=== PATIENT | female | born 2000 | race Caucasian/White ===

== ENCOUNTER 2020-01-04 13:44 | Emergency (ER) | payer MEDICAID, SELFPAY ==
[2020-01-04 13:45] VITALS: BP 111/78; PULSE 77; RESP 15; TEMP 36.9; O2SAT 98; BMI 20.5
--- NOTE | 2020-01-04 14:10 | ED.VISSUMM ---
- ER Visit Summary Date of Service: 01/04/20 Chief Complaint: [Abdominal pain] History of Present Illness: The patient is a 19 F [presents to the emergency department with complaint of abdominal discomfort that started yesterday. Patient describes pain intermittently to the right lower quadrant. Patient states that she has vomited x2. She denies any diarrhea. She states this morning it was continuous for about 3 hours. It tends to wax and wane in intensity and just somewhat of a discomfort. Patient is also 28 weeks . Patient is G1, P0. Patient states that her urine is been dark has mild discomfort when she urinates. This morning she noted small amount of vaginal bleeding that was very light. She still feeling the baby move. Patient is G1, P0. She is had no prior surgeries. No prior medical history. Patient is a smoker.] Physical Examination: [HEENT-PERRLA, EOMI. Cranial nerves II through XII grossly intact. TMs clear. Mucous membranes moist. No adenopathy. Cardiovascular-regular rate and rhythm without murmur or ectopy Lungs-clear to auscultation, chest wall stable without crepitus or subcu emphysema Abdomen-normoactive bowel sounds, soft. Patient has tenderness to palpation of the right lower quadrant. There is no rebound, rigidity, or peritoneal signs. Extremities-intact ?4, normal range of motion, normal pulses, atraumatic] Test Results: [CBC with differential obtained showed a white count of 10.9, hemoglobin 12, hematocrit 37, placed 210. Chemistries unremarkable. LFTs were normal. heart tones were 136. Urinalysis showed 500 cassette esterase as well as 10-25 WBCs and +2 bacteria.] Emergency Department Course and Treatment: [Patient received a liter normal same fluid bolus. Patient received Zofran 4 mg IV. After treatment patient felt significantly improved. She describes just minimal discomfort at this time and is crampy. I discussed case with C[employer] CH[employer] TECHNICIAN on-call Dr. Cantu who asked that patient follow-up with their office and to return for worsening pain, fever, persistent vomiting, or condition should worsen anyway. They did not want to monitor the patient for contractions at this time based on symptom description and presentation as well as findings consistent with UTI. Patient is comfortable with plan.] Treatment Plan: [Patient was started on Keflex and Zofran. She is advised to return if persistent vomiting, worsening pain, fever, or condition should worsen anyway.] Disposition: [Discharged home in stable condition] Impression: [UTI Abdominal pain ] This note was generated with [employer] dictation software. It may contain incorrect words, spelling, and punctuation that were not noted in review of the chart prior to signing ED Disposition - Plan for ED Patient: Referrals: [facility] Doctor,Out of [NON-STAFF] -
[2020-01-04 14:15] LABS: Mucous, Urine 0 SEEN /hpf (<or=2+); Red Blood Cells-Urine 0 SEEN /hpf (0-5)
[2020-01-04] MEDS: 0.9% Normal Saline 1,000 ML 1000 ML IV (14:17)
[2020-01-04] MEDS: Ondansetron 4 MG/2 ML Vial IV (14:17)
[2020-01-04 14:22] LABS: Absolute Lymphocyte Count 1.59 X10^3/uL (0.83-4.51); Absolute Neutrophil Count 8.4 X10^3/uL (2.0-7.7); Basophil# 0.08 X10^3/uL; Basophil% 0.7 % (0-1); Eosinophil# 0.07 X10^3/uL; Eosinophils% 0.6 % (0-5); Hematocrit 36.7 % (37-47); Hemoglobin 12.3 g/dL (12.0-15.0); Lymphocyte # 1.59 X10^3/ul (4.0); Lymphocyte % 14.7 % (19-41); Mean Corp Hgb Conc 33.5 g/dL (32-36); Mean Corpuscular Hgb 30.8 pg (27.0-32.0); Mean Platelet Vol. 10.8 fl (6.2-12.0); Monocyte% 5.5 % (0-10); NRBC Flagged by Analyzer 0 % (0-5); Neutrophil % 77.5 % (47-70); Platelet Count 210 K/mm3 (150-450); RBC Distribution Width CV 12.1 % (11.6-14.6); RBC Distribution Width SD 40.7 fl (35.1-43.9); Red Blood Count 3.99 M/mm3 (4.2-5.4); White Blood Count 10.9 K/mm3 (4.4-11.0)
[2020-01-04 14:35] LABS: Color, Urine Yellow (Yellow); Glucose, Dipstick Normal (Normal); Ketone-Dipstick Negative (Negative); Leukocyte Esterase-Dipstick 500 /ul (Negative); Nitrite-Dipstick Negative (Negative); Occult Blood-Urine Negative /ul (Negative); Protein-Dipstick Negative (Negative); Urine Bilirubin Dipstick Negative (Negative); Urine Clarity Clear (Clear); Urine Urobilinogen Normal (Normal)
[2020-01-04 14:36] LABS: ALB/GLOB Ratio 0.8 RATIO (0.9-2.4); AST(SGOT) 16 U/L (15-37); Alanine Aminotransfer ALT/SGPT 16 U/L (13-56); Albumin, Serum 3.3 g/dL (3.2-5.0); Alkaline Phosphatase 74 U/L (45-117); Anion Gap 6 (5-15); BUN 6 mg/dL (7-18); BUN/Creat Ratio 10.5 RATIO (10-20); Calcium,Total 8.7 mg/dL (8.5-10.1); Chloride 104 mmol/L (98-107); Creatinine, Serum 0.57 mg/dL (0.55-1.02); EST Glomerular Filtration Rate 142 mL/min (>60); Est Glom Filt Rate - Afr Amer 172 mL/min (>60); Estimated Creatinine Clearance 147.88 ml/min; Glucose 72 mg/dL (74-106); Potassium 3.8 mmol/L (3.5-5.1); Protein, Total 7.3 g/dL (6.4-8.2); Sodium Level 135 mmol/L (136-145)
[2020-01-04 14:42] LABS: Bacteria 2+ /hpf (None Seen); Squamous Epithelial Cells - UA 5-10 SEEN /hpf (5-10); White Blood Cells 10-25 SEEN /hpf (0-5)
--- NOTE | 2020-01-04 15:13 | ED.DEP ---
ED Disposition - Plan for ED Patient: Instructions: VOMITING (5y-Adult), Urinary Tract Infections in Women Prescriptions: Cephalexin [Keflex] 500 mg PO Q6 #28 cap Transmission Status: Pending to [facility]ARC[facility] Ondansetron [Zofran Odt] 4 mg PO Q8H PRN PRN #10 tab PRN Reason: Nausea Transmission Status: Pending to [facility] Referrals: [facility] Doctor,Out of [NON-STAFF] - Shonda Ocampo MD [Primary Care Provider] - 3-5 Days
[2020-01-04] MEDS: Ceftriaxone 1 GM/50 ML BAG IV (15:33)
[2020-01-04 16:05] VITALS: BP 100/62; PULSE 70; RESP 18; O2SAT 100
== END 2020-01-04 16:33 | disposition home or self-care (01) ==
LOC: ED 14:30
PROVIDERS: Emergency Provider Emergency Medicine
DX: O23.43 Unspecified infection of urinary tract in pregnancy, third trimester (principal); O99.333 Smoking (tobacco) complicating pregnancy, third trimester; Z3A.28 28 weeks gestation of pregnancy
CPT/HCPCS: 80053; 81001; 85025; 87086; 87088; 96365; 96375; 99283; J7030; J2405

== ENCOUNTER 2020-01-08 19:51 | Emergency (ER) | payer MEDICAID, SELFPAY ==
[2020-01-08 19:51] VITALS: BP 107/65; PULSE 97; RESP 15; TEMP 37.2; O2SAT 97; BMI 20.6
--- NOTE | 2020-01-08 20:40 | ED.DCSUM_ITS ---
- ER Visit Summary Date of Service: 01/08/20 Chief Complaint: Dysuria and vaginal irritation History of Present Illness: The patient is a 19 F presenting with dysuria and vaginal irritation. Patient states this started approximately one week ago. She was seen in the ED on Thursday. At that time she was found to have a UTI and was started on Keflex. She states she took the Keflex for 4 days but then developed a yeast infection and stopped Keflex. She was then treated with Monistat. She continues to have a white vaginal discharge with itching. She continues to have dysuria. She states she has not been sexually active since Thursday. Her boyfriend is also in the ED with symptoms of penile discharge. They deny multiple sex partners. She denies vaginal bleeding or fluid leakage. Denies abdominal pain or contractions. Denies nausea or vomiting. She has an appointment with her EXTENSION WORK DIRECTOR this week on Thursday. Physical Examination: Vitals are stable. Patient is afebrile. Alert no acute distress. HEENT exam is unremarkable. Neck is supple. Lungs are clear and equal bilaterally. Heart is regular rate and rhythm. Abdomen is soft gravid nontender : Thick white vaginal discharge, no rash or lesions, patient unable to tolerate speculum exam Extremities are unremarkable. Skin is warm and dry. Remainder of exam is unremarkable. Emergency Department Course and Treatment: heart tones 148. Urinalysis shows 0-5 white blood cells, 0-5 red blood cells, 5-10 epithelial cells. Urine culture was sent. Negative for trichomonas. GC chlamydia cultures were sent. Patient declines GC chlamydia treatment and will wait until her test results return. Discussed with Dr. Ocampo. She is given a prescription for Monistat 7. Advised to follow-up with her scheduled appointment. Advised return to ED for worsening complaints. Disposition: Discharge home Impression: Yeast vaginitis This note was generated with [employer] dictation software. It may contain incorrect words, spelling, and punctuation that were not noted in review of the chart prior to signing ED Disposition - Plan for ED Patient: Instructions: Vaginal Infection: Yeast (Candidiasis) Prescriptions: Miconazole Nitrate [Monistat 7] 1 applic VAGINAL QHS #7 tube Prescription Printed Referrals: Shonda Ocampo MD [STAFF PHYSICIAN] -
[2020-01-08 20:55] LABS: Red Blood Cells-Urine 0 SEEN /hpf (0-5)
[2020-01-08 20:58] LABS: Color, Urine Yellow (Yellow); Glucose, Dipstick 50 mg/dl (Normal); Ketone-Dipstick 5 mg/dl (Negative); Leukocyte Esterase-Dipstick 500 /ul (Negative); Nitrite-Dipstick Negative (Negative); Occult Blood-Urine 10 /ul (Negative); Protein-Dipstick 30 mg/dl (Negative); Urine Clarity Cloudy (Clear); Urine Urobilinogen 1 mg/dl (Normal)
[2020-01-08 21:01] LABS: Urine Bilirubin Dipstick 1 mg/dL (Negative)
[2020-01-08 21:04] LABS: Mucous, Urine 3+ /hpf (<or=2+)
[2020-01-08 21:06] LABS: Squamous Epithelial Cells - UA 5-10 SEEN /hpf (5-10)
[2020-01-08 21:07] LABS: Bacteria 1+ /hpf (None Seen); White Blood Cells 0-5 SEEN /hpf (0-5)
--- NOTE | 2020-01-08 21:51 | ED.DEP ---
ED Disposition - Plan for ED Patient: Instructions: Vaginal Infection: Yeast (Candidiasis) Prescriptions: Miconazole Nitrate [Monistat 7] 1 applic VAGINAL QHS #7 tube Referrals: Shonda Ocampo MD [STAFF PHYSICIAN] -
[2020-01-08 22:10] VITALS: RESP 16
[2020-01-08 22:30] LABS: Neisserai gonorrhoeae by PCR Negative (Negative); Probe Check PASS
[2020-01-08 22:31] LABS: Chlamydia Trachomatis by PCR POSITIVE (Negative)
[2020-01-08] MEDS: Azithromycin 250 MG Tablet 1000 MG PO (22:50)
== END 2020-01-08 22:27 | disposition home or self-care (01) ==
LOC: ED 20:16
PROVIDERS: Emergency Provider Emergency Medicine
DX: B37.3 Candidiasis of vulva and vagina (principal); Z87.440 Personal history of urinary (tract) infections
CPT/HCPCS: 81001; 87086; 87210; 87491; 87591; 99282

== ENCOUNTER 2020-02-12 21:40 | Outpatient (CLI) | payer MEDICAID, SELFPAY ==
[2020-02-12 22:15] VITALS: BMI 22.0
[2020-02-12 23:13] LABS: ROM Internal Control Test YES-OK TO RESULT pt. (Internal QC); ROM Patient Test Negative (Negative)
--- NOTE | 2020-02-12 23:28 | NURSING ---
RN notified Dr. Ocampo of MSE of 3 and requirement of evaluation prior to discharge. Dr. Ocampo states evaluation will not be completed prior to discharge.
--- NOTE | 2020-02-13 07:22 | OB.TRI.NOTE ---
History of Present Illness Date of Service: 02/12/20 Was patient seen by the physician?: No Reason For Visit: RULE OUT LABOR Date of Service: 02/12/20 Final TALAT: 03/24/20 Gestational age: 34 Weeks and 1 Days Allergies No Known Allergies Allergy (Verified 01/08/20 19:58) Laboratory Studies: Laboratory Tests 02/12/20 Range/Units 22:35 Vag Amniotic Fld Detect Negative (Negative) NST - FHR Rate Baby A Baseline: 130 Variability:: Moderate Accelerations:: 15 x 15 Decelerations:: None NST Reactive:: Yes FHR Category:: Category I Uterine Activity:: irritability Impression/Plan 19 YOF primigravida @ 34 1/7 weeks gestation w/ false labor, r/o SROM d/c home w/ PTL precautions. f/u for next appointment or prn
== END 2020-02-12 23:50 | disposition home or self-care (01) ==
LOC: WPOUT 22:00 → WP 22:00
PROVIDERS: Referring Provider Obstetrics & Gynecology; Visit Provider Obstetrics & Gynecology
DX: O47.03 False labor before 37 completed weeks of gestation, third trimester (principal); Z3A.34 34 weeks gestation of pregnancy
CPT/HCPCS: 59025; 59050; 84112; 99218; G0378

== ENCOUNTER 2020-02-18 21:38 | Outpatient (CLI) | payer MEDICAID, SELFPAY ==
[2020-02-18 21:52] VITALS: BP 119/88; PULSE 75
[2020-02-18 21:53] VITALS: TEMP 37.1; O2SAT 97
[2020-02-18 22:12] VITALS: BMI 21.5
[2020-02-18 23:16] LABS: Hematocrit 33.7 % (37-47); Hemoglobin 11.2 g/dL (12.0-15.0); Mean Corp Hgb Conc 33.2 g/dL (32-36); Mean Corpuscular Hgb 29.7 pg (27.0-32.0); Mean Corpuscular Volume 89.4 fL (81-99); Mean Platelet Vol. 11.6 fl (6.2-12.0); Platelet Count 186 K/mm3 (150-450); RBC Distribution Width CV 12.2 % (11.6-14.6); RBC Distribution Width SD 39.3 fl (35.1-43.9); Red Blood Count 3.77 M/mm3 (4.2-5.4); White Blood Count 9.1 K/mm3 (4.4-11.0)
[2020-02-18] MEDS: Ondansetron ODT 4 MG Tablet PO (23:38)
[2020-02-18 23:44] LABS: AST(SGOT) 16 U/L (15-37); Alanine Aminotransfer ALT/SGPT 13 U/L (13-56); Creatinine, Serum 0.66 mg/dL (0.55-1.02); EST Glomerular Filtration Rate 121 mL/min (>60); Est Glom Filt Rate - Afr Amer 147 mL/min (>60); Estimated Creatinine Clearance 137.16 ml/min; Uric Acid 3.8 mg/dL (2.6-6.0)
[2020-02-18 23:48] LABS: Amphetamine Urine VISTA NEGATIVE (<1000 ng/mL); Barbiturate Urine VISTA NEGATIVE (< 200 ng/mL); Benzodiazepine Urine VISTA NEGATIVE (< 200 ng/mL); Cocaine Urine VISTA NEGATIVE (< 300 ng/mL); Ecstacy Urine VISTA NEGATIVE (< 500 ng/mL); Methadone Urine VISTA NEGATIVE (< 300 ng/mL); PCP Urine VISTA NEGATIVE (< 25 ng/mL); THC Urine VISTA NEGATIVE (< 50 ng/mL); Vista UDS pH Range 6
--- NOTE | 2020-02-19 02:55 | OB.TRI.NOTE ---
History of Present Illness Was patient seen by the physician?: No Reason For Visit: R/O LABOR Date of Service: 02/18/20 Final TALAT: 03/24/20 Gestational age: 35 Weeks and 1 Days Allergies No Known Allergies Allergy (Verified 01/08/20 19:58) Laboratory Studies: Laboratory Tests 02/18/20 02/18/20 02/18/20 Range/Units 23:05 23:05 23:05 WBC 9.1 (4.4-11.0) K/mm3 RBC 3.77 L (4.2-5.4) M/mm3 Hgb 11.2 L (12.0-15.0) g/dL Hct 33.7 L (37-47) % MCV 89.4 (81-99) fL MCH 29.7 (27.0-32.0) pg MCHC 33.2 (32-36) g/dL RDW Std Deviation 39.3 (35.1-43.9) fl RDW Coeff of Nabil 12.2 (11.6-14.6) % Plt Count 186 (150-450) K/mm3 MPV 11.6 (6.2-12.0) fl Creatinine 0.66 (0.55-1.02) mg/dL Estim Creat Clear Calc 137.16 ml/min Est GFR (MDRD) Af Amer 147 (>60) mL/min Est GFR (MDRD) Non-Af 121 (>60) mL/min Uric Acid 3.8 (2.6-6.0) mg/dL AST 16 (15-37) U/L ALT 13 (13-56) U/L Urine Opiates Screen NEGATIVE (< 300 ng/mL) Urine Methadone Screen NEGATIVE (< 300 ng/mL) Ur Barbiturates Screen NEGATIVE (< 200 ng/mL) Ur Phencyclidine Scrn NEGATIVE (< 25 ng/mL) Ur Amphetamines Screen NEGATIVE (<1000 ng/mL) U Methamphetamin-MDMA NEGATIVE (< 500 ng/mL) U Benzodiazepines Scrn NEGATIVE (< 200 ng/mL) Urine Cocaine Screen NEGATIVE (< 300 ng/mL) U Cannabinoids Screen NEGATIVE (< 50 ng/mL) Ur Drug Screen Comment Physical Exam Vitals: Vital Signs Temp Pulse BP Pulse Ox 98.8 F 75 119/88 H 97 02/18/20 21:53 02/18/20 21:52 02/18/20 21:52 02/18/20 21:53 NST - FHR Rate Baby A Baseline: 125 Variability:: Moderate Accelerations:: 15 x 15 Decelerations:: Variable NST Reactive:: Yes Uterine Activity:: Irritability with irregular ctxs Impression/Plan Reactive NST for N&V in
[2020-03-14 19:26] VITALS: BP 139/94; PULSE 69
== END 2020-02-19 00:20 | disposition home or self-care (01) ==
LOC: WPOUT 21:40 → WP 21:40
PROVIDERS: Visit Provider Obstetrics & Gynecology
DX: O21.2 Late vomiting of pregnancy (principal); Z3A.35 35 weeks gestation of pregnancy
CPT/HCPCS: 36415; 59025; 59050; 80307; 82565; 84450; 84460; 84550; 85027; 99218; G0378

== ENCOUNTER 2020-03-14 19:00 | Outpatient (CLI) | payer MEDICAID, SELFPAY ==
[2020-03-14 19:26] VITALS: TEMP 37.3; O2SAT 99
[2020-03-14 19:33] VITALS: BP 128/84; PULSE 65
[2020-03-14] MEDS: Lactated Ringers 1,000 ML 999 ML IV (20:10)
[2020-03-14] MEDS: Morphine 2 MG/ML Syringe IV (20:16)
[2020-03-14 20:21] VITALS: O2SAT 98
[2020-03-14 20:22] VITALS: BP 144/91; PULSE 68
[2020-03-14 20:26] VITALS: PULSE 69; O2SAT 99
[2020-03-14] MEDS: hydrOXYzine PAM 25 MG Capsule 50 MG PO (20:30)
[2020-03-14 20:33] VITALS: BMI 22.3
[2020-03-14 20:46] LABS: ROM Internal Control Test YES-OK TO RESULT pt. (Internal QC); ROM Patient Test Negative (Negative)
--- NOTE | 2020-03-25 13:02 | OB.TRI.HP_ITS ---
- Problem List (1) Irregular contractions Status: Acute History of Present Illness Date of Service: 04/14/20 Was patient seen by the physician?: No Reason For Visit: R/O rupture of membranes and labor Date of Service: 03/14/20 Final TALAT Source: US <20 weeks History of Present Illness: Presented to labor and delivery triage with complaint of uterine contractions a nd leakage of fluid. Allergies No Known Allergies Allergy (Verified 03/14/20 20:34) Laboratory Studies: Laboratory Tests 03/14/20 Range/Units 20:15 Vag Amniotic Fld Detect Negative (Negative) Physical Exam Vitals: Vital Signs Temp Pulse BP Pulse Ox 99.1 F 69 144/91 H 99 03/14/20 19:26 03/14/20 20:26 03/14/20 20:22 03/14/20 20:26 NST - FHR Rate Baby A Baseline: 145 Variability:: Moderate Accelerations:: 15 x 15 Decelerations:: None NST Reactive:: Yes Uterine Activity:: Irregular Impression/Plan A:False Labor Vaginal discharge P: 1) Not in active labor, reviewed possible early labor, no cervical change and ROM plus negative. Instructions reviewed by nursing when to call or return in active labor.
== END 2020-03-14 23:10 | disposition home or self-care (01) ==
LOC: WPOUT 19:28 → OBT 19:28 → WP 03-15 07:25
PROVIDERS: Visit Provider Advanced Practice Midwife
DX: O47.9 False labor, unspecified (principal); Z3A.00 Weeks of gestation of pregnancy not specified
CPT/HCPCS: 59025; 59050; 84112; 99218; J7120; G0378

== ENCOUNTER 2020-03-15 03:56 | Inpatient (IN) | payer MEDICAID, SELFPAY ==
[2020-03-14 20:33] VITALS: BMI 22.3
[2020-03-15] VITALS (19 sets, daily range): BP systolic 120–142; BP diastolic 62–91; PULSE 60–111; RESP 14–16; TEMP 36.4–37.2; BMI 22.5
[2020-03-15] MEDS: Lactated Ringers 1,000 ML 50 ML IV (04:13)
[2020-03-15] MEDS: Oxytocin 30 units/NS 500 ml 30 UNITS/500 ML IV.SOLN 334 UNITS IV (04:44)
[2020-03-15 04:48] LABS: Absolute Lymphocyte Count 1.07 X10^3/uL (0.83-4.51); Absolute Neutrophil Count 12.3 X10^3/uL (2.0-7.7); Basophil# 0.04 X10^3/uL; Basophil% 0.3 % (0-1); Hematocrit 33.8 % (37-47); Hemoglobin 11.2 g/dL (12.0-15.0); Lymphocyte # 1.07 X10^3/ul (4.0); Lymphocyte % 7.6 % (19-41); Mean Corp Hgb Conc 33.1 g/dL (32-36); Mean Corpuscular Hgb 28.8 pg (27.0-32.0); Mean Corpuscular Volume 86.9 fL (81-99); Monocyte% 3.5 % (0-10); NRBC Flagged by Analyzer 0 % (0-5); Neutrophil # 12.33 X10^3/uL (2.7-7.7); Neutrophil % 87.5 % (47-70); Platelet Count 178 K/mm3 (150-450); RBC Distribution Width CV 12.8 % (11.6-14.6); RBC Distribution Width SD 40.1 fl (35.1-43.9); Red Blood Count 3.89 M/mm3 (4.2-5.4); White Blood Count 14.1 K/mm3 (4.4-11.0)
--- NOTE | 2020-03-15 04:52 | PCM.HP.OB ---
- Problem List (1) Active labor at term Status: Acute (2) History of drug use Status: Acute (3) Chlamydia infection affecting Status: Acute (4) Tobacco use during Status: Acute (5) History of bipolar disorder Status: Acute History Date of Admission: 03/15/20 Final TALAT: 03/24/20 Gestational age: 38 Weeks and 5 Days History of this : This is a 19 year-old, G [1], P [0], at 38w5d weeks gestational age. Presented to labor and delivery at 9cm with bulging bag of water. Early labor yesterday and sent home. Patient with increased contraction severity and frequency and came to L&D by squad. Allergies No Known Allergies Allergy (Verified 03/14/20 20:34) Home Medications: Home Medications Pnv No.103/Folic/Om3s/Fish Oil [ Gummies] 1 ea PO BID 01/04/20 Iron 1 tab PO DAILY 01/08/20 Acetaminophen 500 mg PO PRN PRN 02/12/20 Melatonin/Pyridoxine HCl (B6) [Melatonin 1 mg Tablet] 1 ea PO PRN PRN 02/12/20 Smoking Status: Current some day smoker Alcohol: None Number of Fetus(es): 1 History Past Pregnancies: Past Pregnancies Delivery Date Name GA/ Weeks Outcome Route Wt Sex Labor Length Anesthesia Delivery Location Provider FOB Labs: HBsAG negative RPR nonreactive Rubella Immune HIV negative O positive Positive for marijuana in urine tox screen in early 11/03/19, negative 12/28/19 GC negative +chlamydia beginning of , negative 03/08/20 GBS negative Expected Infant Delivery Method: Spontaneous Vaginal Review of Systems Constitutional: Denies: Chills, Fever HEENT: Denies: Head Aches, Sinus Congestion, Sinus Drainage Cardiovascular: Denies: Chest Pain, Palpitations Respiratory: Denies: Cough, Shortness of breath at rest, Sputum production Psychiatric: Denies: Anxiety, Depression, Homicidal Ideations, Suicidal Ideations Physical Exam Vitals: Vital Signs Pulse BP 82 133/88 H 03/15/20 04:09 03/15/20 04:09 General: Alert, Oriented x3, Cooperative HEENT: Atraumatic CUTTER GAS: Normal external genitalia Assessment/Plan All Active Problems Active labor at term (Acute) History of drug use (Acute) Chlamydia infection affecting (Acute) Tobacco use during (Acute) History of bipolar disorder (Acute) This is a 19 year-old, G [1], P [0], at 38 weeks 5 days gestational age. A: Active Labor at term P: 1) Admit to labor and delivery 2) Routine labs, IV 3) Epidural upon request 4) Dr. Ocampo [facility] physician
--- NOTE | 2020-03-15 05:03 | PCM.OPRPT ---
Problem List (1) Active labor at term Status: Acute (2) History of drug use Status: Acute (3) Chlamydia infection affecting Status: Acute (4) Tobacco use during Status: Acute (5) History of bipolar disorder Status: Acute (6) Vaginal delivery Status: Acute Vaginal Delivery Maternal Presentation: Active Labor Amniotic Membrane Rupture Type: Spontaneous Amniotic Fluid Description: Clear Final TALAT: 03/24/20 Gestational age: 38 Weeks and 5 Days Date of Procedure: 03/15/20 Pre-Operative Diagnosis: Active labor Post-Operative Diagnosis: Surgery/ Procedure Performed: Spontaneous Vaginal Delivery Type of Anesthesia: None Description of Procedure: Arrived by squad and nursing exam 9cm dilated, IBOW. Admission process started. Patient rapidly progressed and feeling pressure, called to L&D. Upon arrival, of viable female infant by Charisma Worrell RN. on maternal abdomen, APGARS 9,9. Delivery with nuchal cord x1 per nursing, no complications. Cord clamped and cut and FOB cut the cord. Pitocin started for active 3rd stage management. Placenta delivered with expression, intact, 3 vessel cord via erum. Perineum infected and revealed intact perineum, no repair needed. Fundus firm, hemostasis achieved. EBL 200ml. Mom and baby stable, planning to breastfeed. Family bonding well. notified. Presentation: Vertex Placental Delivery Description: Spontaneous Cord Vessel Description: 3 Vessels Cord Entanglement: Around neck x 1, loose Estimated Blood Loss: 200 ml A gender: Female (1 minute): 8 (5 minute): 9 Episiotomy Description: None Laceration: None Medications given after delivery: IV Pitocin
[2020-03-15] MEDS: Acetaminophen 500 MG Tablet 1000 MG PO ×2 (07:40→19:55)
[2020-03-15] MEDS: Ibuprofen 600 MG Tablet PO ×2 (14:33→21:58)
[2020-03-16 04:19] VITALS: BP 116/67; PULSE 75
[2020-03-16 04:20] VITALS: BP 116/67; PULSE 75; RESP 14; TEMP 36.3
[2020-03-16] MEDS: Ibuprofen 600 MG Tablet PO ×2 (06:17→14:15)
[2020-03-16 06:18] LABS: Hematocrit 29.6 % (37-47); Hemoglobin 9.7 g/dL (12.0-15.0); Mean Corp Hgb Conc 32.8 g/dL (32-36); Mean Corpuscular Hgb 29.3 pg (27.0-32.0); Mean Corpuscular Volume 89.4 fL (81-99); Mean Platelet Vol. 12.2 fl (6.2-12.0); Platelet Count 153 K/mm3 (150-450); RBC Distribution Width CV 13.3 % (11.6-14.6); RBC Distribution Width SD 43.3 fl (35.1-43.9); Red Blood Count 3.31 M/mm3 (4.2-5.4); White Blood Count 10.3 K/mm3 (4.4-11.0)
--- NOTE | 2020-03-16 07:53 | PCM.PN.OB ---
Patient Problems: Active and Suspected Problems Active labor at term (Acute) History of drug use (Acute) Chlamydia infection affecting (Acute) Tobacco use during (Acute) History of bipolar disorder (Acute) Vaginal delivery (Acute) Subjective: Doing well. Ambulating voiding without difficulty. Lochia normal. Denies nausea or vomiting. Denies lightheadedness, dizziness, chest pain, shortness of breath, leg pain. Desires to go home. - Physical Exam Vitals/I&O's: Vital Signs Temp Pulse Resp BP 97.4 F L 75 14 116/67 03/16/20 04:20 03/16/20 04:20 03/16/20 04:20 03/16/20 04:20 Oxygen Delivery Method Room Air Weight: 144 lb Body Mass Index (BMI) 22.5 Intake and Output for Last 24 Hours 03/14/20 03/15/20 03/16/20 23:59 23:59 23:59 Intake Total 525.83 / 525.83 Output Total 450 / 450 Balance 75.83 / 75.83 General: Alert, No apparent distress HEENT: Atraumatic Abdomen: Soft, Non Tender Extremities: No Calf Tenderness Skin: No rashes Neurological: Neuro grossly intact Psych/Mental Status: Normal Affect, Appropriate Microbiology Past 72 Hours 03/15/20 05:45 Mucosa - Nasopharyngeal Coronavirus COVID-19 PCR - Final Laboratory Results 03/16/20 06:10: WBC 10.3, RBC 3.31 L, Hgb 9.7 L, Hct 29.6 L, MCV 89.4, MCH 29.3, MCHC 32.8, RDW Std Deviation 43.3, RDW Coeff of Nabil 13.3, Plt Count 153, MPV 12.2 H Current Medications Acetaminophen (Tylenol) 1,000 mg PO Q8H PRN PRN PRN Reason: Pain Score 1-3/10 Last Admin: 03/15/20 19:55 Dose: 1,000 mg Documented by: Bisacodyl (Dulcolax) 10 mg RECTAL UD PRN PRN Reason: If no BM Dibucaine (Dibucaine) 1 applic TOPICAL TID PRN PRN; Protocol PRN Reason: Discomfort Hydrocortisone (Hytone) 1 applic TOPICAL TID PRN PRN; Protocol PRN Reason: Discomfort Ibuprofen (Motrin) 600 mg PO Q6H PRN PRN PRN Reason: Pain Score 1-3/10 Last Admin: 03/16/20 06:17 Dose: 600 mg Documented by: Methylergonovine Maleate (Methergine) 0.2 mg IM X1 PRN PRN Reason: Excess bleeding/uterine atony Ondansetron HCl (Zofran) 4 mg IV Q4H PRN PRN PRN Reason: Nausea Senna/Docusate Sodium (Senokot-S, Myrna-Colace) 1 - 2 tablet PO DAILY PRN PRN PRN Reason: Constipation Simethicone (Mylicon) 80 mg PO PCHS PRN PRN Reason: Indigestion/Stomach pain Sodium Chloride () 5 - 15 ml IV UD PRN PRN Reason: SALINE FLUSH Medical Necessity - Tobacco Use Smoking Status: Current some day smoker Assessment/Plan All Active Problems Active labor at term (Acute) History of drug use (Acute) Chlamydia infection affecting (Acute) Tobacco use during (Acute) History of bipolar disorder (Acute) Vaginal delivery (Acute) She is day 1 from a vaginal delivery. She desires to go home. Discharge instructions reviewed.
--- NOTE | 2020-03-16 07:54 | DCINST_ITS ---
Discharge Diet: No Restrictions Discharge Activity: May Shower, May Take a Tub Bath May resume sexual activity in: 6 weeks Ice area for (Minutes): 15 Weight Bearing Status: Weight bearing as tolerated Lifting Restrictions: Nothing greater than 15 lbs for 2 weeks Call your doctor if you observe: Fever of 101 or Higher, Inability to urinate, Inability to have a bowel movement, Using more than one pad per hour, Shortness of breath, Dizziness, Fainting spells, Chest pain, Increased palpitations (irregular heartbeat), Calf discomfort, Uncontrolled pain Additional Instructions: If you experience any of the following, contact your healthcare provider. * Bleeding that soaks a pad every hour for 2 hours * Fever 100.4 or higher * Unrelieved incision or abdominal pain * Swelling, redness, discharge or bleeding from your incision or episiotomy site * Your incision begins to separate * Problems urinating (including inability to urinate or burning while urinating). * Visual changes * Severe headache * Flu-like symptoms * Pain or redness in one of both of your breasts * Pain, warmth, tenderness or swelling in your legs, especially the calf area * Frequent nausea and vomiting * Symptoms of depression or anxiety If you experience any of the following, call 911 or go to the nearest Emergency Room. * Chest pain * Problems breathing * Seizure activity * Partial or complete paralysis of a body part, slurred speech, weakness or drooping of the face, or a sudden inability to walk or hold your balance Allergies/Adverse Reactions: Allergies No Known Allergies Allergy (Verified 03/14/20 20:34) Medications to take at Discharge Pnv No.103/Folic/Om3s/Fish Oil [ Gummies] 1 ea PO BID 01/04/20 Iron 1 tab PO DAILY 01/08/20 Acetaminophen 500 mg PO PRN PRN 02/12/20 Melatonin/Pyridoxine HCl (B6) [Melatonin 1 mg Tablet] 1 ea PO PRN PRN 02/12/20 When: 6 weeks for visit. Can also follow up in 1-2 weeks if you desire Primary Care Physician: Care Physician,No Primary [Primary Care Provider] - Test Results: Test results from this visit will be discussed in further detail at your follow- up appointment, if applicable.
[2020-03-16 08:00] VITALS: BP 127/93; PULSE 58; RESP 16; TEMP 36.4
[2020-03-16] MEDS: Senna/Docusate Sodium 1 Tablet PO (08:25)
[2020-03-16 08:28] VITALS: BP 127/93; PULSE 58
[2020-03-16 13:44] VITALS: BP 138/101; PULSE 81
[2020-03-16 14:00] VITALS: BP 138/101; PULSE 81; RESP 16; TEMP 36.4
== END 2020-03-16 18:10 | disposition home or self-care (01) | DRG 560 ==
PROVIDERS: Admitting Provider Advanced Practice Midwife; Visit Provider Advanced Practice Midwife
DX: O62.3 Precipitate labor (principal); O69.81X0 Labor and delivery complicated by cord around neck, without compression, not applicable or unspecified; O98.319 Other infections with a predominantly sexual mode of transmission complicating pregnancy, unspecified trimester; A56.8 Sexually transmitted chlamydial infection of other sites; O99.320 Drug use complicating pregnancy, unspecified trimester; F12.11 Cannabis abuse, in remission; O99.334 Smoking (tobacco) complicating childbirth; F17.200 Nicotine dependence, unspecified, uncomplicated; Z3A.38 38 weeks gestation of pregnancy; Z37.0 Single live birth; Z86.59 Personal history of other mental and behavioral disorders; O47.9 False labor, unspecified
CPT/HCPCS: 59025; 59050; 84112; 85025; 85027; 86850; 86900; 86901; 87635; 99218; G2023; J7120; G0378; U0004

== ENCOUNTER 2020-05-27 19:56 | Emergency (ER) | payer MEDICAID, SELFPAY ==
[2020-03-15 04:15] VITALS: BMI 22.5
[2020-05-27 19:57] VITALS: BP 94/68; PULSE 105; RESP 15; TEMP 36.8; O2SAT 96; BMI 18.4
--- NOTE | 2020-05-27 20:13 | ED.VISSUMM ---
- ER Visit Summary Date of Service: 05/27/20 Chief Complaint: [Pelvic pain, dysuria, vaginal discharge] History of Present Illness: The patient is a 20 F [resents to the emergency department with symptoms for about a week. Patient complains of frequent urination and dysuria. Patient's had some burning and itching to her vagina and vaginal pain. Patient states that she just delivered a baby 2 months ago and she has had multiple episodes and treatments for bacterial vaginosis and yeast infections. Patient has a remote history of chlamydia and history of HPV. She denies any fevers. Patient also states that she has had 2+ tests at home since delivering. Patient also describes some mild discomfort in her back. Patient denies nausea or vomiting. She denies diarrhea. Patient is G3, P1.] Physical Examination: [HEENT-PERRLA, EOMI. Cranial nerves II through XII grossly intact. TMs clear. Mucous membranes moist. No adenopathy. Cardiovascular-regular rate and rhythm without murmur or ectopy Lungs-clear to auscultation, chest wall stable without crepitus or subcu emphysema Abdomen-normoactive bowel sounds, soft, nontender, no rebound or rigidity, no peritoneal signs. exam-patient deferred pelvic exam as she states that she has an appointment with her retail marketing specialist next week. Extremities-intact ?4, normal range of motion, normal pulses, atraumatic] Test Results: [Urine test was negative. Urinalysis was unremarkable. Testing was sent for GC and chlamydia via urine.] Emergency Department Course and Treatment: [Patient was given Zithromax 1 g p.o. as well as Rocephin 250 mg IM. I will order for her to have Diflucan one-time dose to cover for yeast and also will treat with Flagyl for 7 days for possible bacterial vaginosis.] Treatment Plan: [Patient will be treated with Flagyl and Diflucan. She will keep her appointment with her BIOINFORMATICS SUPPORT SPECIALIST in 1 week.] Disposition: [Discharged home in stable condition] Impression: [Vaginitis] This note was generated with [employer] software. It may contain incorrect words, spelling, and punctuation that were not noted in review of the chart prior to signing
[2020-05-27 20:38] LABS: Bacteria 0 SEEN /hpf (None Seen); Mucous, Urine 0 SEEN /hpf (<or=2+); Red Blood Cells-Urine 0 SEEN /hpf (0-5)
[2020-05-27 20:55] LABS: Color, Urine Yellow (Yellow); Glucose, Dipstick Normal (Normal); Ketone-Dipstick 5 mg/dl (Negative); Leukocyte Esterase-Dipstick 25 /ul (Negative); Nitrite-Dipstick Negative (Negative); Occult Blood-Urine Negative /ul (Negative); Protein-Dipstick 30 mg/dl (Negative); Specific Gravity, Urine 1.025 (1.002-1.030); Urine Bilirubin Dipstick Negative (Negative); Urine Clarity Sl. Cloudy (Clear); Urine Urobilinogen 1 mg/dl (Normal)
[2020-05-27 20:57] LABS: Internal QC Validated? YES +Cl - CLEAR BKGD; Pregnancy, Urine Negative Negative
[2020-05-27 21:00] LABS: Squamous Epithelial Cells - UA 10-25 SEEN /hpf (5-10)
[2020-05-27 21:01] LABS: White Blood Cells 0-5 SEEN /hpf (0-5)
--- NOTE | 2020-05-27 21:09 | ED.DEP ---
ED Disposition - Plan for ED Patient: Instructions: Vaginal Infection: Bacterial Vaginosis Prescriptions: Fluconazole [Diflucan] 150 mg PO DAILY #1 tab Prescription Printed Metronidazole [Flagyl] 500 mg PO TID #21 tab Prescription Printed Referrals: Care Physician,No Primary [Primary Care Provider] - Shonda Ocampo MD [STAFF PHYSICIAN] - 5-7 Days
[2020-05-27] MEDS: Azithromycin 250 MG Tablet 1000 MG PO (21:24)
[2020-05-27 21:32] VITALS: BP 98/66; PULSE 74; RESP 16; O2SAT 97
[2020-05-27] MEDS: Ciprofloxacin 250 MG Tablet 500 MG PO (21:38)
[2020-05-27 23:22] LABS: Chlamydia Trachomatis by PCR Negative (Negative); Neisserai gonorrhoeae by PCR Negative (Negative); Probe Check PASS; Sample Adequacy Control PASS; Specimen Processing Control PASS
== END 2020-05-27 21:41 | disposition home or self-care (01) ==
LOC: ED 20:29
PROVIDERS: Emergency Provider Emergency Medicine
DX: N76.0 Acute vaginitis (principal); Z86.19 Personal history of other infectious and parasitic diseases; Z72.0 Tobacco use
CPT/HCPCS: 81001; 81025; 87491; 87591; 99284

== ENCOUNTER 2020-06-22 14:26 | Emergency (ER) | payer MEDICAID, SELFPAY ==
[2020-06-22 14:27] VITALS: BP 105/67; PULSE 103; RESP 18; TEMP 36.4; O2SAT 98; BMI 17.4
--- NOTE | 2020-06-22 14:50 | ED.DCSUM_ITS ---
History of Present Illness Informant: Patient - Abdominal Pain/Flank Pain Onset: Yesterday Context: Gradual Onset Timing: Continuous Quality: Burning, Cramping Location: Epigastric, LUQ, LLQ Current Severity: Mild Maximum Severity: Mild Worsened by: Food Relieved by: Remaining Still - Nausea/Vomiting/Emesis GI Symptom: Nausea, Vomiting Onset: Today Quality: Nonbilious Severity: Moderate Episodes: 1 - Diarrhea/Melena/Hematochezia GI Symptom: Negative for: Diarrhea, Melena, Hematochezia Associated Symptoms: Negative for: Dysuria, Frequency, Hematuria, Urgency LMP: Narrative: 20-year-old female currently 6 weeks presents with nausea vomiting and abdominal pain. This is the patient's second . She had extreme morning sickness with her first . At that time she was on Phenergan. She currently is not on any antiemetic. She did see her VOCATIONAL ADVISER last week she had a ultrasound that demonstrated an intrauterine . She is not having vaginal bleeding or discharge. Most of her pain is left-sided. She states it is burning and cramping. She has not had hematemesis or coffee-ground emesis. Denies diarrhea melena or hematochezia. Denies fevers. Denies back pain. Denies urinary symptoms. Patient also complains of a rash on her left cheek the left side of her neck and around her left collarbone. She noticed it 2 days ago. It is pruritic. It is not painful. She has no other areas of rash. She has not had any shortness of breath throat swelling sore throat fevers she has no sick contacts she denies any recent antibiotic use recent travel or history of similar rash Prior similar symptoms: Yes Recent Illness/Hospitalization: No <John Gil - Last Filed: 06/22/20 15:20> <Colin Rae - Last Filed: 06/22/20 16:47> Chief Complaint: Abd Pain Past Medical History Prior records reviewed: Yes Past Medical History: None Surgical History: no surgical history Smoking Status: Current every day smoker Alcohol: Occasional Drugs: None <John Gil - Last Filed: 06/22/20 15:20> <Colin Rae - Last Filed: 06/22/20 16:47> - Allergies and Home Meds Allergies/Adverse Reactions: Allergies No Known Allergies Allergy (Verified 06/22/20 14:30) Primary Care Physician: Padmini Mendoza MD [STAFF PHYSICIAN] - Review of Systems All systems negative except as indicated General: Denies: Chills, Fever, Malaise, Sweats Eyes: Denies: Visual changes - bilaterally, Diplopia ENT: Denies: Rhinorrhea, Sore throat Cardiovascular: Denies: Chest pain, Palpitations Respiratory: Denies: Dyspnea, Cough, Dyspnea on exertion Gastrointestinal: Reports: Abdominal pain, Nausea, Vomiting. Denies: Diarrhea, Constipation, Melena, Hematochezia Genitourinary: Denies: Dysuria, Hematuria, Frequency Musculoskeletal: Denies: Back pain, Extremity Pain Skin: Reports: Rash. Denies: Abscess, Abrasions, Wounds Neurological: Denies: Headache, Weakness, Numbness <John Gil - Last Filed: 06/22/20 15:20> Physical Exam Vital Signs/Narrative: Vital Signs Temp Pulse Resp BP Pulse Ox 06/22/20 14:27 97.6 F L 103 H 18 105/67 98 Inital Vital Signs reviewed: Yes General: Well nourished, Well developed, No Acute Distress Head: Normocephalic, Atraumatic Eyes: Perrl, EOMI ENT: Moist mucous membranes, No rhinorrhea Neck: Supple, Nontender Cardiovascular: Regular rate, Regular rhythm, No murmurs Respiratory: No distress, CTA bilaterally, Chest nontender Abdomen: Soft, Nontender, Nondistended, Normal bowel sounds Back: Nontender, Normal Inspection. Negative for: CVA tenderness Extremities: Nontender, No edema Skin: Normal color, No rash, Rash - Patient has 3 macules on her left cheek one on her left collarbone and one on the left side of her neck. No vesicles no pustules no central clearing. Blanchable she has no other areas of rash noted no lesions within her mouth no lesions on her palms or soles no petechiae or purpura Neurological: Alert, Oriented x3, Cranial nerves II-XII grossly intact, Normal Strength, Normal Sensation Psychological: Normal affect, Normal Mood <John Gil - Last Filed: 06/22/20 15:20> Vital Signs/Narrative: Vital Signs Temp Pulse Resp BP Pulse Ox 06/22/20 15:32 79 100 06/22/20 14:27 97.6 F L 103 H 18 105/67 98 <Colin Rae - Last Filed: 06/22/20 16:47> Diagnostic/Tx/Re-eval Laboratory Results 06/22/20 06/22/20 06/22/20 14:40 14:40 15:00 WBC 4.5 RBC 4.53 Hgb 12.7 Hct 38.1 MCV 84.1 MCH 28.0 MCHC 33.3 RDW Std Deviation 39.8 RDW Coeff of Nabil 13.1 Plt Count 217 MPV 11.0 Immature Gran % (Auto) 0.200 Neut % (Auto) 62.8 Lymph % (Auto) 26.6 [place] % (Auto) 8.0 Eos % (Auto) 1.3 Baso % (Auto) 1.1 H Absolute Neuts (auto) 2.8 Absolute Lymphs (auto) 1.20 Nucleated RBC % 0 Sodium 139 Potassium 3.5 Chloride 106 Carbon Dioxide 25.0 Anion Gap 8 BUN 7 Creatinine 0.70 Estim Creat Clear Calc 104.36 Est GFR (MDRD) Af Amer 136 Est GFR (MDRD) Non-Af 112 BUN/Creatinine Ratio 10.0 Glucose 108 H Calcium 9.3 Total Bilirubin 0.60 AST 22 ALT 20 Alkaline Phosphatase 53 Total Protein 7.6 Albumin 4.1 Globulin 3.5 Albumin/Globulin Ratio 1.2 Lipase 57 L Urine Color Yellow Urine Clarity Sl. Cloudy Urine pH 5.0 Ur Specific [place] 1.025 Urine Protein Negative Urine Glucose (UA) Normal Urine Ketones 5 H Urine Occult Blood Negative Urine Nitrite Negative Urine Bilirubin Negative Urine Urobilinogen 1 H Ur Leukocyte Esterase 100 H Urine RBC 0 SEEN Urine WBC 10-25 SEEN Ur Squamous Epith Cells 5-10 SEEN Urine Bacteria 1+ Urine Mucus 0 SEEN - Medical Decision Making Patient was treated with IV fluids and Phenergan. CBC CMP lipase unremarkable. Patient does have 10-25 white blood cells on her urinalysis. Will treat with Macrobid. Repeat exam she feels improved. Patient at this time is able to tolerate by mouth. Her repeat abdominal exam was soft and nontender. Will discharge home placed on Macrobid and she will follow-up with her VOCATIONAL ADVISER. <John Gil - Last Filed: 06/22/20 15:20> - Medical Decision Making Patient was seen and evaluated. Her abdomen is soft nontender. This does seem consistent with hyperemesis in . Urine does show some trace evidence of infection and given her , this will be treated. She will be prescribed Phenergan and will follow-up with VOCATIONAL ADVISER. <Colin Rae - Last Filed: 06/22/20 16:47> ED Disposition <John Gil - Last Filed: 06/22/20 15:20> <Colin Rae - Last Filed: 06/22/20 16:47> - Plan for ED Patient: Disposition: Home or Assisted Living Diagnosis: Nausea/vomiting in , First trimester , UTI (urinary tract infection) during Instructions: ED CYSTITIS Female Adult, ED Nausea Vomiting Adult Prescriptions: Hydrocortisone 2.5% Crm [Hytone] 1 applic TOPICAL BID PRN PRN #1 tube PRN Reason: Rash/Topical Irritation Transmission Status: Received by SNEAIT GARCÍA RD Nitrofurantoin Macrocrystals [Macrobid] 100 mg PO Q12 #10 cap Transmission Status: Received by SENAIT GARCÍA RD proMETHazine tablet [Phenergan] 25 mg PO Q6H PRN PRN #15 tab PRN Reason: Nausea Transmission Status: Received by SENAIT GARCÍA RD Referrals: Padmini Mendoza MD [STAFF PHYSICIAN] -
[2020-06-22 14:53] LABS: Absolute Neutrophil Count 2.8 X10^3/uL (2.0-7.7); Basophil# 0.05 X10^3/uL; Basophil% 1.1 % (0-1); Eosinophil# 0.06 X10^3/uL; Eosinophils% 1.3 % (0-5); Hematocrit 38.1 % (37-47); Hemoglobin 12.7 g/dL (12.0-15.0); Lymphocyte % 26.6 % (19-41); Mean Corp Hgb Conc 33.3 g/dL (32-36); Mean Corpuscular Volume 84.1 fL (81-99); Monocyte# 0.36 X10^3/uL; NRBC Flagged by Analyzer 0 % (0-5); Neutrophil # 2.83 X10^3/uL (2.7-7.7); Neutrophil % 62.8 % (47-70); Platelet Count 217 K/mm3 (150-450); RBC Distribution Width CV 13.1 % (11.6-14.6); RBC Distribution Width SD 39.8 fl (35.1-43.9); Red Blood Count 4.53 M/mm3 (4.2-5.4); White Blood Count 4.5 K/mm3 (4.4-11.0)
[2020-06-22] MEDS: proMETHazine 25 MG/ML Syringe 12.5 MG IV (14:54)
[2020-06-22] MEDS: 0.9% Normal Saline 1,000 ML 1000 ML IV (14:54)
[2020-06-22 15:06] LABS: Mucous, Urine 0 SEEN /hpf (<or=2+); Red Blood Cells-Urine 0 SEEN /hpf (0-5)
[2020-06-22 15:09] LABS: Color, Urine Yellow (Yellow); Glucose, Dipstick Normal (Normal); Ketone-Dipstick 5 mg/dl (Negative); Leukocyte Esterase-Dipstick 100 /ul (Negative); Nitrite-Dipstick Negative (Negative); Occult Blood-Urine Negative /ul (Negative); Protein-Dipstick Negative (Negative); Specific Gravity, Urine 1.025 (1.002-1.030); Urine Bilirubin Dipstick Negative (Negative); Urine Clarity Sl. Cloudy (Clear); Urine Urobilinogen 1 mg/dl (Normal)
[2020-06-22 15:12] LABS: ALB/GLOB Ratio 1.2 RATIO (0.9-2.4); AST(SGOT) 22 U/L (15-37); Alanine Aminotransfer ALT/SGPT 20 U/L (13-56); Albumin, Serum 4.1 g/dL (3.2-5.0); Alkaline Phosphatase 53 U/L (45-117); Anion Gap 8 (5-15); BUN 7 mg/dL (7-18); Calcium,Total 9.3 mg/dL (8.5-10.1); Chloride 106 mmol/L (98-107); EST Glomerular Filtration Rate 112 mL/min (>60); Est Glom Filt Rate - Afr Amer 136 mL/min (>60); Estimated Creatinine Clearance 104.36 ml/min; Globulin 3.5 g/dL (2.2-4.2); Glucose 108 mg/dL (74-106); Lipase 57 U/L (73-393); Potassium 3.5 mmol/L (3.5-5.1); Protein, Total 7.6 g/dL (6.4-8.2); Sodium Level 139 mmol/L (136-145)
[2020-06-22 15:15] LABS: Bacteria 1+ /hpf (None Seen); Squamous Epithelial Cells - UA 5-10 SEEN /hpf (5-10); White Blood Cells 10-25 SEEN /hpf (0-5)
[2020-06-22] MEDS: Nitrofurantoin Macrocrystals 100 MG Capsule PO (15:28)
[2020-06-22 15:32] VITALS: PULSE 79; O2SAT 100
== END 2020-06-22 15:33 | disposition home or self-care (01) ==
PROVIDERS: Emergency Provider Physician Assistant Medical
DX: O23.41 Unspecified infection of urinary tract in pregnancy, first trimester (principal); O21.9 Vomiting of pregnancy, unspecified; O99.331 Smoking (tobacco) complicating pregnancy, first trimester; F17.200 Nicotine dependence, unspecified, uncomplicated; Z3A.01 Less than 8 weeks gestation of pregnancy
CPT/HCPCS: 80053; 81001; 83690; 85025; 87086; 96361; 96374; 99284; J7030; A4216

== ENCOUNTER 2020-08-18 21:52 | Emergency (ER) | payer MEDICAID, SELFPAY ==
[2020-08-18 21:53] VITALS: BP 100/69; PULSE 85; RESP 18; TEMP 36.4; O2SAT 98; BMI 17.8
[2020-08-18 22:29] LABS: Mucous, Urine 0 SEEN /hpf (<or=2+); Red Blood Cells-Urine 0 SEEN /hpf (0-5); White Blood Cells 0 SEEN /hpf (0-5)
[2020-08-18 22:38] LABS: Color, Urine Yellow (Yellow); Glucose, Dipstick Normal (Normal); Ketone-Dipstick Negative (Negative); Leukocyte Esterase-Dipstick Negative /ul (Negative); Nitrite-Dipstick Negative (Negative); Occult Blood-Urine Negative /ul (Negative); Protein-Dipstick Negative (Negative); Specific Gravity, Urine 1.025 (1.002-1.030); Urine Bilirubin Dipstick Negative (Negative); Urine Clarity Sl. Cloudy (Clear); Urine Urobilinogen Normal (Normal)
--- NOTE | 2020-08-18 22:43 | ED.DCSUM_ITS ---
- ER Visit Summary Date of Service: 08/18/20 Chief Complaint: Pelvic pain History of Present Illness: The patient is a 20 F G2, P1 at 14 weeks and 2 days. Follows with the [facility]. Blood type O+. She has some pelvic pain over the last 2 days. She had spotting yesterday and then some discharge today. Physical Examination: Afebrile and vital signs unremarkable. Abdomen soft and nontender. Cervix is closed. There is scant discharge, likely physiologic. Exam was chaperoned by RAN Patel. Test Results: heart tones 140. Labs were reviewed from previously. Blood type is O+. We will check urinalysis, gonorrhea, chlamydia, wet prep. Results are pending at the time of this dictation. Emergency Department Course and Treatment: Patient is 14 weeks . Ultrasound shows a live intrauterine with good movement and good heart tones. Blood type O positive. I suspect her discharge is physiologic. We will check a urinalysis as well as gonorrhea, chlamydia, BV, and trichomonas testing. The oncoming doctor will check the urinalysis and any results that are back this evening. She will follow-up on Thursday for the rest of her results. She did not want empiric treatment this evening. She recently had negative testing for STDs. Patient signed out to Dr. Hoover. Treatment Plan: Pending results Disposition: Discharge pending results Impression: Live intrauterine , vaginal discharge This note was generated with [employer] software. It may contain incorrect words, spelling, and punctuation that were not noted in review of the chart prior to signing ED Disposition - Plan for ED Patient: Referrals: Care Physician,No Primary [Primary Care Provider] -
[2020-08-18 22:58] LABS: Bacteria 1+ /hpf (None Seen); Squamous Epithelial Cells - UA 0-5 SEEN /hpf (5-10)
[2020-08-19 00:11] LABS: Chlamydia Trachomatis by PCR Negative (Negative); Neisserai gonorrhoeae by PCR Negative (Negative); Probe Check PASS; Sample Adequacy Control PASS; Specimen Processing Control PASS
--- NOTE | 2020-08-19 00:30 | ED.VISSUMM ---
- ER Visit Summary Date of Service: 08/19/20 Chief Complaint: [] History of Present Illness: The patient is a 20 F [] Physical Examination: [] Test Results: [] Emergency Department Course and Treatment: [] Treatment Plan: [] Disposition: [] Impression: [] This note was generated with [employer] software. It may contain incorrect words, spelling, and punctuation that were not noted in review of the chart prior to signing ED Disposition - Plan for ED Patient: Disposition: Home or Assisted Living Diagnosis: Threatened Instructions: ED Possible Miscarriage Threatened Referrals: Shonda Ocampo MD [STAFF PHYSICIAN] - 2 Days
[2020-08-19 00:51] VITALS: BP 119/57; PULSE 74; RESP 16; O2SAT 96
== END 2020-08-19 00:53 | disposition home or self-care (01) ==
PROVIDERS: Emergency Provider Emergency Medicine
DX: O26.892 Other specified pregnancy related conditions, second trimester (principal); N89.8 Other specified noninflammatory disorders of vagina; R10.2 Pelvic and perineal pain; O99.332 Smoking (tobacco) complicating pregnancy, second trimester; F17.200 Nicotine dependence, unspecified, uncomplicated; Z3A.14 14 weeks gestation of pregnancy
CPT/HCPCS: 81001; 87210; 87491; 87591; 99282

== ENCOUNTER 2021-01-16 18:55 | Outpatient (CLI) | payer MEDICAID, SELFPAY ==
[2021-01-16 19:16] VITALS: BP 121/74; PULSE 82; TEMP 36.6; O2SAT 99
[2021-01-16 19:17] VITALS: BMI 20.6
[2021-01-16 20:11] LABS: ROM Internal Control Test YES-OK TO RESULT pt. (Internal QC); ROM Patient Test Negative (Negative)
[2021-01-16 20:14] LABS: Mucous, Urine 0 SEEN /hpf (<or=2+); Red Blood Cells-Urine 0 SEEN /hpf (0-5)
[2021-01-16 20:19] LABS: Color, Urine Yellow (Yellow); Glucose, Dipstick Normal (Normal); Ketone-Dipstick 5 mg/dl (Negative); Leukocyte Esterase-Dipstick 100 /ul (Negative); Nitrite-Dipstick Negative (Negative); Occult Blood-Urine Negative /ul (Negative); Protein-Dipstick Negative (Negative); Urine Bilirubin Dipstick Negative (Negative); Urine Clarity Sl. Cloudy (Clear); Urine Urobilinogen 1 mg/dl (Normal); Urine pH 6.5 (5.0 - 8.0)
[2021-01-16] MEDS: Lactated Ringers 1,000 ML 999 ML IV (20:20)
[2021-01-16 20:35] LABS: Amorphous Sediment 1+; Bacteria 2+ /hpf (None Seen); Squamous Epithelial Cells - UA 25-50 SEEN /hpf (5-10); White Blood Cells 5-10 SEEN /hpf (0-5)
[2021-01-16 21:15] LABS: Group B Strep DNA By PCR Negative (Negative); Internal Control PASS; Probe Check PASS; Specimen Processing Control PASS
[2021-01-16] MEDS: Acetaminophen 500 MG Tablet 1000 MG PO (21:57)
--- NOTE | 2021-01-27 12:37 | OB.TRI.PN ---
Progress Notes Date of Service: 01/17/21 Progress Note: Presents to labor and delivery with complaint of leakage of fluid. No vaginal bleeding and good movement. Reactive NST ROM plus negative Vaginal discharge False labor Discharge home and follow up outpatient as scheduled. Laboratory Studies: Laboratory Tests 01/16/21 01/16/21 01/16/21 Range/Units 20:05 20:05 19:35 Urine Color Yellow (Yellow) Urine Clarity Sl. Cloudy (Clear) Urine pH 6.5 (5.0 - 8.0) Ur Specific [place] 1.020 (1.002-1.030) Urine Protein Negative (Negative) mg/dl Urine Glucose (UA) Normal (Normal) mg/dl Urine Ketones 5 H (Negative) mg/dl Urine Occult Blood Negative (Negative) /ul Urine Nitrite Negative (Negative) Urine Bilirubin Negative (Negative) mg/dL Urine Urobilinogen 1 H (Normal) mg/dl Ur Leukocyte Esterase 100 H (Negative) /ul Urine RBC 0 SEEN (0-5) /hpf Urine WBC 5-10 SEEN (0-5) /hpf Ur Squamous Epith Cells 25-50 SEEN (5-10) /hpf Amorphous Sediment 1+ Urine Bacteria 2+ (None Seen) /hpf Urine Mucus 0 SEEN (<or=2+) /hpf Vag Amniotic Fld Detect Negative (Negative) Group B Strep DNA Negative (Negative) Specimen Comment Not Reportable
== END 2021-01-16 23:00 | disposition home or self-care (01) ==
LOC: WPOUT 19:10 → WP 19:11
PROVIDERS: Visit Provider Advanced Practice Midwife
DX: O47.9 False labor, unspecified (principal); Z3A.00 Weeks of gestation of pregnancy not specified
CPT/HCPCS: 96360; 59025; 59050; 81001; 84112; 87081; 87086; 87653; 99218; J7120; G0378

== ENCOUNTER 2021-01-22 19:02 | Outpatient (CLI) | payer MEDICAID, SELFPAY ==
[2021-01-22 19:33] VITALS: BP 115/61; PULSE 80; PULSE 83; TEMP 37.1; O2SAT 98
[2021-01-22 21:20] VITALS: BMI 20.7
--- NOTE | 2021-01-23 02:48 | OB.TRI.NOTE ---
History of Present Illness Was patient seen by the physician?: No Reason For Visit: RULE OUT LABOR Date of Service: 01/23/21 Final TALAT: 02/14/21 Final TALAT Source: US <20 weeks Gestational age: 36 Weeks and 6 Days Allergies No Known Allergies Allergy (Verified 01/22/21 21:22) Physical Exam Vitals: Vital Signs Temp Pulse BP Pulse Ox 98.8 F 83 115/61 98 01/22/21 19:33 01/22/21 19:33 01/22/21 19:33 01/22/21 19:33 NST - FHR Rate Baby A Baseline: 135 Variability:: Moderate Accelerations:: 15 x 15 NST Reactive:: Yes Uterine Activity:: Irritability Impression/Plan NST for threatened PTL
== END 2021-01-22 21:25 | disposition home or self-care (01) ==
LOC: WPOUT 19:06 → WP 19:06
PROVIDERS: Referring Provider Obstetrics & Gynecology; Visit Provider Obstetrics & Gynecology
DX: O60.03 Preterm labor without delivery, third trimester (principal); Z3A.36 36 weeks gestation of pregnancy
CPT/HCPCS: 59025; 59050; 99218; G0378

== ENCOUNTER 2021-02-07 06:55 | Inpatient (IN) | payer MEDICAID, SELFPAY ==
[2021-02-07] VITALS (49 sets, daily range): BP systolic 103–129; BP diastolic 58–89; PULSE 44–245; RESP 18; TEMP 36.3–37.2; O2SAT 84–100; BMI 21.2
[2021-02-07] MEDS: Lactated Ringers 1,000 ML 50 ML IV (07:30)
[2021-02-07 07:53] LABS: Absolute Lymphocyte Count 1.72 X10^3/uL (0.83-4.51); Absolute Neutrophil Count 6.7 X10^3/uL (2.0-7.7); Basophil# 0.05 X10^3/uL; Basophil% 0.6 % (0-1); Eosinophil# 0.04 X10^3/uL; Eosinophils% 0.4 % (0-5); Hematocrit 31.1 % (37-47); Hemoglobin 9.8 g/dL (12.0-15.0); Lymphocyte # 1.72 X10^3/ul (0.83-4.51); Mean Corp Hgb Conc 31.5 g/dL (32-36); Mean Corpuscular Hgb 26.9 pg (27.0-32.0); Mean Corpuscular Volume 85.4 fL (81-99); Mean Platelet Vol. 11.3 fl (6.2-12.0); Monocyte# 0.53 X10^3/uL; Monocyte% 5.8 % (0-10); NRBC Flagged by Analyzer 0 % (0-5); Neutrophil # 6.66 X10^3/uL (2.7-7.7); Neutrophil % 73.5 % (47-70); Platelet Count 225 K/mm3 (150-450); RBC Distribution Width CV 13.3 % (11.6-14.6); RBC Distribution Width SD 41.3 fl (35.1-43.9); Red Blood Count 3.64 M/mm3 (4.2-5.4); White Blood Count 9.1 K/mm3 (4.4-11.0)
[2021-02-07] MEDS: Oxytocin 30 units/NS 500 ml 30 UNITS/500 ML IV.SOLN IV (08:01)
[2021-02-07] MEDS: 0.9% Normal Saline Single 100 ML IV.SOLN. INTRA-UTER (08:30)
--- NOTE | 2021-02-07 08:43 | PCM.HP.OB ---
- Problem List (1) 39 weeks gestation of Status: Acute (2) Thyroid dysfunction in in third trimester Status: Acute (3) History of OCD (obsessive compulsive disorder) Status: Acute (4) Uterine size date discrepancy Status: Acute (5) History of bipolar disorder Status: Acute (6) IUGR (intrauterine growth restriction) Status: Acute History Date of Admission: 02/07/21 Final TALAT: 02/14/21 Final TALAT Source: US <20 weeks Gestational age: 39 Weeks and 0 Days History of this : This is a 20 year-old, G [2], P [1001], at 39.0 weeks gestational age for induction of labor for IUGR. EFW 8%, JOHN normal. has been complicated by thyroid dysfunction in 3rd trimester, IUGR, and history of bipolar, ADD, and OCD Allergies No Known Allergies Allergy (Verified 02/07/21 07:48) Home Medications: Home Medications Pediatric Multivitamin No.49 [Flintstones Gummies] 1 tab PO BID 08/18/20 Ferrous Sulfate [Iron] 325 mg PO DAILY 01/22/21 Levothyroxine 25 mg PO DAILY 02/07/21 Smoking Status: Former smoker Number of Fetus(es): 1 NST - FHR Rate Baby A Baseline: 138 Variability:: Moderate Accelerations:: 15 x 15 Decelerations:: None NST Reactive:: Yes FHR Category:: Category I Uterine Activity:: Occasional contractions History Past Pregnancies: Past Pregnancies Delivery Date Name GA/ Weeks Outcome Route Wt Sex Labor Length Anesthesia Delivery Location Provider FOB Labs: O+ Rubella - immune HB - neg HC- neg RPR- NR HIV- NR GBS- neg GC/CH- neg COVID- 19 unknown Expected Delivery Method: Spontaneous Vaginal Review of Systems Constitutional: Denies: Chills, Fever, Weight Change HEENT: Denies: Head Aches, Sinus Congestion, Sinus Drainage Cardiovascular: Denies: Chest Pain, Palpitations Respiratory: Denies: Cough, Shortness of breath at rest, Sputum production Gastrointestinal: Denies: Abdominal Pain, Nausea, Vomiting Genitourinary: Denies: Dysuria Musculoskeletal: Denies: Joint Pain, Joint Tenderness Neurological: Denies: Numbness, Tingling, Focal weakness Psychiatric: Denies: Anxiety, Depression, Homicidal Ideations, Suicidal Ideations Physical Exam Vitals: Vital Signs Temp Pulse BP Pulse Ox 98.2 F 77 120/83 H 99 02/07/21 07:56 02/07/21 07:57 02/07/21 07:57 02/07/21 07:56 General: Alert, Oriented x3, Cooperative, No apparent distress HEENT: Atraumatic Cardiovascular: Regular rate, Regular Rhythm Lungs: Clear to auscultation Abdomen: Bowel Sounds Present, Soft, Non Tender, Gravid Neurological: Cranial nerves II-XII grossly intact Assessment/Plan All Active Problems Active labor at term (Acute) History of drug use (Acute) Chlamydia infection affecting (Acute) Tobacco use during (Acute) History of bipolar disorder (Acute) Vaginal delivery (Acute) Irregular contractions (Acute) 39 weeks gestation of (Acute) Thyroid dysfunction in in third trimester (Acute) History of OCD (obsessive compulsive disorder) (Acute) Uterine size date discrepancy (Acute) IUGR (intrauterine growth restriction) (Acute) This is a 20 year-old, G [2], P [1], at 39.0 weeks gestational age for induction of labor for IUGR Admit to labor and delivery Routine labs IV fluids per policy Place Darling bulb Start pitocin IV and titrate per protocol Pain medication when indicated Dr. Ocampo notified of admission and is collaborating physician
[2021-02-07] MEDS: fentaNYL 100 MCG/2 ML Ampul IV (09:45)
[2021-02-07 10:38] LABS: Amphetamine Urine VISTA NEGATIVE (<1000 ng/mL); Barbiturate Urine VISTA NEGATIVE (< 200 ng/mL); Benzodiazepine Urine VISTA NEGATIVE (< 200 ng/mL); Cocaine Urine VISTA NEGATIVE (< 300 ng/mL); Ecstacy Urine VISTA NEGATIVE (< 500 ng/mL); Methadone Urine VISTA NEGATIVE (< 300 ng/mL); PCP Urine VISTA NEGATIVE (< 25 ng/mL); THC Urine VISTA NEGATIVE (< 50 ng/mL); Vista UDS pH Range 5
[2021-02-07] MEDS: Lactated Ringers 500 ML 999 ML IV ×2 (11:40→12:40)
[2021-02-07] MEDS: fentaNYL-bupivacaine (epidural) 100 ML BAG EPIDURAL (12:47)
[2021-02-07] MEDS: Ondansetron 4 MG/2 ML Vial IV (12:58)
[2021-02-07] MEDS: Lactated Ringers 1,000 ML 200 ML IV (15:45)
--- NOTE | 2021-02-07 17:15 | PN.OBGYN_ITS ---
Patient Problems: Active and Suspected Problems (Last Updated 02/07/21 @ 09:48 by Mimi Garibay CNM) History of bipolar disorder (Acute) 39 weeks gestation of (Acute) Thyroid dysfunction in in third trimester (Acute) History of OCD (obsessive compulsive disorder) (Acute) Uterine size date discrepancy (Acute) IUGR (intrauterine growth restriction) (Acute) Subjective: Patient seen at bedside. Sleeping sound. Denies any pain or feeling contractions. Comfortable with epidural. Objective: Cat 1 tracing NST reactive TOCO- 2-3 minutes CE- 680/0 - Physical Exam Vitals/I&O's: Vital Signs Temp Pulse BP Pulse Ox 98.1 F 68 122/70 H 84 02/07/21 16:13 02/07/21 17:13 02/07/21 17:13 02/07/21 17:14 Weight: 136 lb Body Mass Index (BMI) 21.2 Intake and Output for Last 24 Hours 02/05/21 02/06/21 02/07/21 23:59 23:59 23:59 Intake Total 1775.88 / 1775.88 Output Total 175 / 175 Balance 1600.88 / 1600.88 General: Oriented x3, Cooperative HEENT: Atraumatic Oral: Moist Mucosa Lungs: Normal air movement Cardiovascular: Regular rate Abdomen: Soft, Non Tender, Gravid Skin: No rashes Musculoskeletal: No Tenderness to Palpation of Joints or Extremities Neurological: Cranial nerves II-XII grossly intact Psych/Mental Status: Normal Affect, Appropriate Laboratory Results 02/07/21 07:30: WBC 9.1, RBC 3.64 L, Hgb 9.8 L, Hct 31.1 L, MCV 85.4, MCH 26.9 L , MCHC 31.5 L, RDW Std Deviation 41.3, RDW Coeff of Nabil 13.3, Plt Count 225, MPV 11.3, Immature Gran % (Auto) 0.700, Neut % (Auto) 73.5 H, Lymph % (Auto) 19.0, [place] % (Auto) 5.8, Eos % (Auto) 0.4, Baso % (Auto) 0.6, Absolute Neuts (auto) 6.7, Absolute Lymphs (auto) 1.72, Nucleated RBC % 0 02/07/21 07:30: Blood Type O POSITIVE, Antibody Screen NEGATIVE 02/07/21 09:50: Urine Opiates Screen NEGATIVE, Urine Methadone Screen NEGATIVE, Ur Barbiturates Screen NEGATIVE, Ur Phencyclidine Scrn NEGATIVE, Ur Amphetamines Screen NEGATIVE, U Methamphetamin-MDMA NEGATIVE, U Benzodiazepines Scrn NEGATIVE, Urine Cocaine Screen NEGATIVE, U Cannabinoids Screen NEGATIVE, Ur Drug Screen Comment Current Medications Acetaminophen (Acetaminophen 500 Mg Tablet) 500 - 1,000 mg PO Q6H PRN PRN PRN Reason: Pain Score 1-3 Al Hydroxide/Mg Hydroxide (Mag Hydrox/Al Hydrox/Simeth 30 Ml Udc) 15 - 30 ml PO Q4H PRN PRN PRN Reason: INDIGESTION Citric Acid/Sodium Citrate (Sodium Citrate/Citric Acid 30 Ml Udc) 30 ml PO X1 PRN PRN Reason: Section Ephedrine Sulfate (Ephedrine Sulfate 50 Mg/Ml Ampul) 10 mg IV Q10M PRN PRN Reason: hypotension Ephedrine Sulfate (Ephedrine Sulfate 50 Mg/Ml Ampul) 10 mg IM Q30M PRN PRN Reason: hypotension Fentanyl Citrate (Fentanyl 100 Mcg/2 Ml Ampul) 25 - 50 mcg IV Q2H PRN PRN PRN Reason: Pain Score 4-10 Last Admin: 02/07/21 09:45 Dose: 50 mcg Documented by: Fentanyl/Bupivacaine/Sodium Chlor (Fentanyl-Bupivacaine (Epidural) 100 Ml Bag) 0 ml EPIDURAL UD [facility]; Protocol Last Admin: 02/07/21 12:47 Dose: 100 ml Documented by: Oxytocin/Sodium Chloride () 30 units in 500 mls @ 2 mls/hr IV .Q250H STAR Last Infusion: 02/07/21 16:49 Dose: 12 mls/hr Documented by: Lactated Ringer's () 500 mls @ 999 mls/hr IV .Q31M PRN PRN Reason: Epidural Last Infusion: 02/07/21 12:15 Dose: Infused Documented by: Lactated Ringer's () 500 mls @ 999 mls/hr IV .Q31M PRN PRN Reason: Corrective Measures Last Infusion: 02/07/21 13:15 Dose: Infused Documented by: Lactated Ringer's () 1,000 mls @ 50 mls/hr IV .Q20H STAR Last Admin: 02/07/21 15:45 Dose: 200 mls/hr Documented by: Nalbuphine HCl (Nalbuphine 10 Mg/Ml Ampul) 5 mg IV Q3H PRN PRN PRN Reason: ITCHING Naloxone HCl (Naloxone 0.4 Mg/Ml Syringe) 0.02 mg IV Q1M PRN PRN Reason: RR <10 and pt unresponsive Ondansetron HCl (Ondansetron 4 Mg/2 Ml Vial) 4 mg IV Q4H PRN PRN PRN Reason: NAUSEA Last Admin: 02/07/21 12:58 Dose: 4 mg Documented by: Prochlorperazine Edisylate (Prochlorperazine 10 Mg/2 Ml Vial) 10 mg IV Q6H PRN PRN PRN Reason: NAUSEA Sodium Chloride (0.9% Saline Lock 10 Ml Syringe) 10 - 40 ml IV X1 PRN PRN Reason: SALINE FLUSH Medical Necessity - Tobacco Use Smoking Status: Former smoker Assessment/Plan All Active Problems (Last Updated 02/07/21 @ 09:48 by Mimi Garibay CNM) Drug use affecting (Acute) Marijuana use (Acute) Active labor at term (Acute) History of drug use (Acute) Chlamydia infection affecting (Acute) Tobacco use during (Acute) History of bipolar disorder (Acute) Vaginal delivery (Acute) Irregular contractions (Acute) 39 weeks gestation of (Acute) Thyroid dysfunction in in third trimester (Acute) History of OCD (obsessive compulsive disorder) (Acute) Uterine size date discrepancy (Acute) IUGR (intrauterine growth restriction) (Acute) at 39.0 weeks gestation for induction of labor for IUGR Cat. 1 tracing Pitocin 12 mu/min- continue to increase per protocol AROM for moderate amount of clear fluid IUPC placed 0 Continue present plan of care Anticipate
[2021-02-07] MEDS: Oxytocin 30 units/NS 500 ml 30 UNITS/500 ML IV.SOLN 334 UNITS IV (17:42)
--- NOTE | 2021-02-07 18:03 | PCM.OPRPT ---
Problem List (1) 39 weeks gestation of Status: Acute (2) Thyroid dysfunction in in third trimester Status: Acute (3) History of OCD (obsessive compulsive disorder) Status: Acute (4) Uterine size date discrepancy Status: Acute (5) History of bipolar disorder Status: Acute (6) IUGR (intrauterine growth restriction) Status: Acute (7) (spontaneous vaginal delivery) Status: Acute Report of Operation Date of Procedure: 02/07/21 Vaginal Delivery Maternal Presentation: Medically Indicated Induction Patient is a at 39.0 weeks for induction of labor for IUGR. Method of Induction: Pitocin, Darling Bulb Medical Reason for Induction: - - IUGR Amniotic Membrane Rupture Type: Artificial Rupture of Membrane time: 1710 Amniotic Fluid Description: Clear Final TALAT: 02/14/21 Gestational age: 39 Weeks and 0 Days Date of Procedure: 02/07/21 Pre-Operative Diagnosis: Term gestation, IUGR Post-Operative Diagnosis: Live female Surgery/ Procedure Performed: Spontaneous Vaginal Delivery Type of Anesthesia: Epidural Description of Procedure: AROM for clear fluid. Within minutes, patient began to feel pressure. CE revealed 10 cm. head delivered quickly over intact perineum followed by anterior and posterior shoulders and remainder of body. Infant placed on maternal abdomen and attended to by nursing staff. 3 vessel cord clamped and cut by FOB after 3 minutes. Cord blood collected and sent. Pitocin IV started for active management of the third stage. Placenta delivered spontaneously and intact. Minimal bleeding. Fundus Firm 2 below U. Vaginal sweep completed by me. No perineal or vaginal lacerations. EBL 200 cc Patient and infant bonding at this time. Dr. Ocampo notified of delivery. Presentation: Vertex Placental Delivery Description: Spontaneous Placenta Disposition: [facility] Cord Vessel Description: 3 Vessels Cord Entanglement: None Drain: Darling to straight drain Estimated Blood Loss: 200 A gender: Female (1 minute): 8 (5 minute): 9 Episiotomy Description: None Laceration: None Medications given after delivery: IV Pitocin Complications: None
[2021-02-07] MEDS: Ibuprofen 600 MG Tablet PO (19:48)
[2021-02-07] MEDS: 0.9% Saline Lock 10 ML Syringe IV (20:32)
--- NOTE | 2021-02-07 20:41 | NURSING ---
Report given to Kathy Javier RN
[2021-02-08] MEDS: Ibuprofen 600 MG Tablet PO ×2 (02:14→16:09)
[2021-02-08 05:00] VITALS: BP 107/58; PULSE 64; RESP 18; TEMP 37
[2021-02-08] MEDS: Levothyroxine 25 MCG TABLET PO (05:57)
[2021-02-08] MEDS: Acetaminophen 500 MG Tablet 1000 MG PO (06:14)
--- NOTE | 2021-02-08 08:53 | PCM.PN.OB ---
Patient Problems: Active and Suspected Problems (Last Updated 02/07/21 @ 09:48 by Mimi Garibay CNM) (spontaneous vaginal delivery) (Acute) History of bipolar disorder (Acute) 39 weeks gestation of (Acute) Thyroid dysfunction in in third trimester (Acute) History of OCD (obsessive compulsive disorder) (Acute) Uterine size date discrepancy (Acute) IUGR (intrauterine growth restriction) (Acute) Subjective: Denies complaints - Physical Exam Vitals/I&O's: Vital Signs Temp Pulse Resp BP Pulse Ox 98.6 F 64 18 107/58 L 85 02/08/21 05:00 02/08/21 05:00 02/08/21 05:00 02/08/21 05:00 02/07/21 19:51 Oxygen Delivery Method Room Air Weight: 136 lb Body Mass Index (BMI) 21.2 Intake and Output for Last 24 Hours 02/06/21 02/07/21 02/08/21 23:59 23:59 23:59 Intake Total 2916.48 / 2916.48 Output Total 1974 600 / 600 Balance 941.48 / 941.48 -600 / -600 General: Alert, Oriented x3 Abdomen: Soft, Non Tender, Non-Distended - ff mid & below umb Extremities: No Calf Tenderness Laboratory Results 02/07/21 07:30: Blood Type O POSITIVE, Antibody Screen NEGATIVE 02/07/21 09:50: Urine Opiates Screen NEGATIVE, Urine Methadone Screen NEGATIVE, Ur Barbiturates Screen NEGATIVE, Ur Phencyclidine Scrn NEGATIVE, Ur Amphetamines Screen NEGATIVE, U Methamphetamin-MDMA NEGATIVE, U Benzodiazepines Scrn NEGATIVE, Urine Cocaine Screen NEGATIVE, U Cannabinoids Screen NEGATIVE, Ur Drug Screen Comment Current Medications Acetaminophen (Acetaminophen 500 Mg Tablet) 1,000 mg PO Q8H PRN PRN PRN Reason: Pain Score 1-3 Last Admin: 02/08/21 06:14 Dose: 1,000 mg Documented by: Bisacodyl (Bisacodyl 10 Mg Suppository) 10 mg RC UD PRN PRN Reason: If no BM Dibucaine (Dibucaine 30 Gm Tube) 1 applic TOPICAL TID PRN PRN; Protocol PRN Reason: Discomfort Hydrocortisone (Hydrocortisone 2.5% Crm) 1 applic TOPICAL TID PRN PRN; Protocol PRN Reason: Discomfort Ibuprofen (Ibuprofen 600 Mg Tablet) 600 mg PO Q6H PRN PRN PRN Reason: Pain Score 1-3 Last Admin: 02/08/21 02:14 Dose: 600 mg Documented by: Levothyroxine Sodium (Levothyroxine 25 Mcg Tablet) 25 mcg PO DAILY@0600 STAR Last Admin: 02/08/21 05:57 Dose: 25 mcg Documented by: Methylergonovine Maleate (Methylergonovine 0.2 Mg/Ml Ampul) 0.2 mg IM X1 PRN PRN Reason: Excess bleeding/uterine atony Ondansetron HCl (Ondansetron 4 Mg/2 Ml Vial) 4 mg IV Q4H PRN PRN PRN Reason: Nausea Senna/Docusate Sodium (Senna/Docusate Sodium 1 Tablet) 1 - 2 tablet PO DAILY PRN PRN PRN Reason: Constipation Simethicone (Simethicone 80 Mg Tablet) 80 mg PO PCHS PRN PRN Reason: Indigestion/Stomach pain Sodium Chloride (0.9% Saline Lock 10 Ml Syringe) 5 - 15 ml IV UD PRN PRN Reason: SALINE FLUSH Last Admin: 02/07/21 20:32 Dose: 10 ml Documented by: Medical Necessity - Tobacco Use Smoking Status: Former smoker Assessment/Plan All Active Problems (Last Updated 02/07/21 @ 09:48 by Mimi Garibay CNM) (spontaneous vaginal delivery) (Acute) Drug use affecting (Acute) Marijuana use (Acute) Active labor at term (Acute) History of drug use (Acute) Chlamydia infection affecting (Acute) Tobacco use during (Acute) History of bipolar disorder (Acute) Vaginal delivery (Acute) Irregular contractions (Acute) 39 weeks gestation of (Acute) Thyroid dysfunction in in third trimester (Acute) History of OCD (obsessive compulsive disorder) (Acute) Uterine size date discrepancy (Acute) IUGR (intrauterine growth restriction) (Acute) PPD#1 Routine care Bipolar disorder - patient has appt in March but will have office try to get patient a sooner appt Hypothyroid - continue levothyroxine Possible d/c home later today
--- NOTE | 2021-02-08 08:55 | DCINST_ITS ---
Discharge Diet: No Restrictions Discharge Activity: No Restrictions, May Shower May resume sexual activity in: 6 weeks Additional Instructions: If you experience any of the following, contact your healthcare provider. * Bleeding that soaks a pad every hour for 2 hours * Fever 100.4 or higher * Unrelieved incision or abdominal pain * Swelling, redness, discharge or bleeding from your incision or episiotomy site * Your incision begins to separate * Problems urinating (including inability to urinate or burning while urinating). * Visual changes * Severe headache * Flu-like symptoms * Pain or redness in one of both of your breasts * Pain, warmth, tenderness or swelling in your legs, especially the calf area * Frequent nausea and vomiting * Symptoms of depression or anxiety If you experience any of the following, call 911 or go to the nearest Emergency Room. * Chest pain * Problems breathing * Seizure activity * Partial or complete paralysis of a body part, slurred speech, weakness or drooping of the face, or a sudden inability to walk or hold your balance Allergies/Adverse Reactions: Allergies No Known Allergies Allergy (Verified 02/07/21 07:48) Medications to take at Discharge Pediatric Multivitamin No.49 [Flintstones Gummies] 1 tab PO BID 08/18/20 Ferrous Sulfate [Iron] 325 mg PO DAILY 01/22/21 Acetaminophen [Tylenol] 1,000 mg PO Q8H PRN PRN tablet 02/08/21 Ibuprofen [Motrin] 600 mg PO Q6H PRN PRN tablet 02/08/21 Levothyroxine [Synthroid] 25 mcg PO DAILY@0600 tablet 02/08/21 Primary Care Physician: Care Physician,No Primary [Primary Care Provider] - Test Results: Test results from this visit will be discussed in further detail at your follow- up appointment, if applicable.
--- NOTE | 2021-02-08 08:55 | PCM.DCVAG ---
Discharge Diet: No Restrictions Discharge Activity: No Restrictions, May Shower May resume sexual activity in: 6 weeks Additional Instructions: If you experience any of the following, contact your healthcare provider. Bleeding that soaks a pad every hour for 2 hours Fever 100.4 or higher Unrelieved incision or abdominal pain Swelling, redness, discharge or bleeding from your incision or episiotomy site Your incision begins to separate Problems urinating (including inability to urinate or burning while urinating). Visual changes Severe headache Flu-like symptoms Pain or redness in one of both of your breasts Pain, warmth, tenderness or swelling in your legs, especially the calf area Frequent nausea and vomiting Symptoms of depression or anxiety If you experience any of the following, call 911 or go to the nearest Emergency Room. Chest pain Problems breathing Seizure activity Partial or complete paralysis of a body part, slurred speech, weakness or drooping of the face, or a sudden inability to walk or hold your balance Allergies/Adverse Reactions: Allergies No Known Allergies Allergy (Verified 02/07/21 07:48) Medications to take at Discharge Pediatric Multivitamin No.49 [Flintstones Gummies] 1 tab PO BID 08/18/20 Ferrous Sulfate [Iron] 325 mg PO DAILY 01/22/21 Acetaminophen [Tylenol] 1,000 mg PO Q8H PRN PRN tablet 02/08/21 Ibuprofen [Motrin] 600 mg PO Q6H PRN PRN tablet 02/08/21 Levothyroxine [Synthroid] 25 mcg PO DAILY@0600 tablet 02/08/21 Primary Care Physician: Care Physician,No Primary [Primary Care Provider] - Test Results: Test results from this visit will be discussed in further detail at your follow-up appointment, if applicable.
[2021-02-08 08:59] VITALS: BP 116/66; PULSE 79; RESP 18; TEMP 36.7; O2SAT 99
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
--- NOTE | 2021-02-08 16:00 | CASEMGMT ---
Social Work Labor and Delivery With Mother of baby (MOB) permission, this resume writer arranged a mental health follow up for 02-19-2021 at 1000 at [facility] in [place]. This is a virtual visit, which MOB reports would be helpful in regards to transportation. MOB reported inability to get into agency in [facility] for another month or so. Provided handwritten information about appointment time, date, and what to expect with call. MOB in agreement. Resource lists for [facility] provided, mental health appointment, and also mood and anxiety disorder packet. Called [facility] at [phone]. Referral given due to substance exposed . Other risk factors reported, brief maternal and infant histories provided. Notified of strengthened in that MOB agreeable to mental health follow and [facility] referrals. No other services requested or indicted, other than to monitor for meconium drug screen results. -CARLEE Campos, ARTISTS' MODEL
[2021-02-08 16:29] VITALS: BP 119/79; PULSE 75; RESP 18; TEMP 36.9
--- NOTE | 2021-02-08 18:35 | NURSING ---
PHQ 9 completed. Social work consult already ordered and completed prior.
[2021-02-08 19:40] VITALS: BP 117/73; PULSE 90; RESP 16; TEMP 36.6
== END 2021-02-08 21:30 | disposition home or self-care (01) | DRG 560 ==
PROVIDERS: Admitting Provider Advanced Practice Midwife; Referring Provider Advanced Practice Midwife; Visit Provider Advanced Practice Midwife
DX: O36.5930 Maternal care for other known or suspected poor fetal growth, third trimester, not applicable or unspecified (principal); O99.284 Endocrine, nutritional and metabolic diseases complicating childbirth; E03.9 Hypothyroidism, unspecified; O99.343 Other mental disorders complicating pregnancy, third trimester; F31.9 Bipolar disorder, unspecified; Z3A.39 39 weeks gestation of pregnancy; Z37.0 Single live birth; Z87.891 Personal history of nicotine dependence
CPT/HCPCS: 59025; 59050; 80307; 85025; 86850; 86900; 86901; 99218; J7120; A4216; G0378; J2405

== ENCOUNTER 2022-03-15 18:58 | Emergency (ER) | payer MEDICAID, SELFPAY ==
[2022-03-15 19:00] VITALS: BP 117/70; PULSE 93; RESP 16; TEMP 36.4; O2SAT 98; BMI 38.5
--- NOTE | 2022-03-15 19:17 | EX.ED.DYSGE1 ---
HPI History of Present Illness Chief Complaint: Seizure Narrative Narrative: 21-year-old female with history of epilepsy who reports that she is noncompliant with her Keppra for months because your insurance lapsed. She states that she has her insurance back but did not go to her neurologist for refill because she owes $95 for a co-pay to see the doctor. She states that her insurance would cover her Keppra. Patient states that she had several seizures starting about 3 weeks ago. Today she had a 15-second seizure prior to arrival. She states she might of had another 1 in EMS. She is not postictal when I evaluate her. Patient states that prior to this she was otherwise healthy. She does admit to having chills and body aches over the course of the day. She states her throat is sore. She has a mild cough. PFSH [facility] Medical History Drug use affecting Marijuana use PKU (phenylketonuria) Home Medications pediatric multivitamin no.49 1 tab PO BID 08/18/20 [History Last Taken 01/31/21 09:00] ferrous sulfate 325 mg PO DAILY 01/22/21 [History Last Taken 02/05/21 12:00] acetaminophen 1,000 mg PO Q8H PRN PRN tablet 02/08/21 [Rx Last Taken Unknown] ibuprofen 600 mg PO Q6H PRN PRN tablet 02/08/21 [Rx Last Taken Unknown] levothyroxine 25 mcg PO DAILY@0600 tablet 02/08/21 [Rx Last Taken Unknown] levetiracetam [Keppra] 750 mg PO DAILY #15 tab 03/15/22 [Rx Last Taken Unknown] Allergy/AdvReac Type Severity Reaction Status Date / Time No Known Allergies Allergy Verified 02/07/21 07:48 Social History Smoking Status: Former smoker ROS ROS ED Constitutional Constitutional ED: Reports chills and sweats Eyes Eyes: Denies blurry vision or diplopia ENT ENT ED: Reports rhinorrhea and sore throat Cardiovascular Cardiovascular: Denies chest pain or palpitations Respiratory/Chest Respiratory/Chest: Reports cough; Denies dyspnea Gastrointestinal Gastrointestinal: Reports nausea; Denies abdominal pain, diarrhea or vomiting Genitourinary Genitourinary ED: Denies dysuria or hematuria Musculoskeletal Musculoskeletal: Reports myalgias; Denies back pain or neck pain Integumentary Denies rash Neurologic Neurologic: Reports headache(s); Denies paresthesias or weakness Psychiatric Psychiatric: Denies anxiety or depression EXAM Physical Exam Const Vital Signs: 03/15/22 19:00 Temperature 97.6 F L Temperature Source Temporal Pulse Rate 93 Respiratory Rate 16 Blood Pressure 117/70 Blood Pressure Mean 85 Pulse Ox 98 Oxygen Delivery Method Room Air Positive well nourished General Appearance ED: NAD; Negative for pallor HEENT Reports moist mucous membranes Negative for trauma Eyes PERRL and EOMs intact bilaterally Neck no lymphadenopathy and supple Resp normal respiratory effort and clear to auscultation bilaterally Cardio regular rate and regular rhythm Neuro oriented x3, CN's II-XII intact bilaterally and no sensory deficits noted Sensorium / Orientation: alert Motor Exam: strength 5/5 throughout Psych mental status grossly normal Skin no rashes or lesions noted General Skin Exam: Negative for jaundice or pallor MDM MDM MDM Narrative Medical decision making narrative: Patient presenting with breakthrough seizures as she is noncompliant with her Keppra. She was given a gram of Keppra IV and blood work is obtained. CBC and CMP unremarkable with exception of potassium of 3.4. Serum hCG negative. Urinalysis negative for infection. Urine drug screen positive for cannabinoids. Patient had no breakthrough seizures while she was here. When I went to reevaluate the patient she states that she wants to leave. Apparently she had an argument with her boyfriend. There was pop all over the floor. Since her blood work is ultimately normal I did write her prescription for Keppra. She states that she takes 750 p.o. daily. She is encouraged to follow-up with her neurologist in [place]. Patient discharged home in stable condition. Impression: 1. Breakthrough seizure 2. Medical noncompliance Lab Data Attestation: I reviewed the patient's lab results. Labs: Laboratory Results - last 24 hr 03/15/22 03/15/22 03/15/22 19:05 19:05 19:05 WBC 5.4 RBC 4.49 Hgb 12.7 Hct 37.7 MCV 84.0 MCH 28.3 MCHC 33.7 RDW Std Deviation 42.0 RDW Coeff of Nabil 13.6 Plt Count 229 MPV 10.6 Immature Gran % (Auto) 0.700 Neut % (Auto) 86.0 H Lymph % (Auto) 3.5 L [place] % (Auto) 7.8 Eos % (Auto) 1.3 Baso % (Auto) 0.7 Absolute Neuts (auto) 4.6 Absolute Lymphs (auto) 0.19 L Nucleated RBC % 0 Differential Comment SEE COMMENT Platelet Estimate ADEQUATE RBC Morphology NORM C+C Anisocytosis RARE Sodium 137 Potassium 3.4 L Chloride 106 Carbon Dioxide 23.0 Anion Gap 8 BUN 13 Creatinine 0.79 Estim Creat Clear Calc 112.68 Est GFR (MDRD) Af Amer 117 Est GFR (MDRD) Non-Af 97 BUN/Creatinine Ratio 16.5 Glucose 116 H Calcium 9.3 Total Bilirubin 0.50 AST 20 ALT 22 Alkaline Phosphatase 53 Total Protein 7.4 Albumin 4.1 Globulin 3.3 Albumin/Globulin Ratio 1.2 Serum , Qual NEGATIVE Urine Color Urine Clarity Urine pH Ur Specific [place] Urine Protein Urine Glucose (UA) Urine Ketones Urine Occult Blood Urine Nitrite Urine Bilirubin Urine Urobilinogen Ur Leukocyte Esterase Urine RBC Urine WBC Ur Squamous Epith Cells Urine Bacteria Urine Mucus Urine Opiates Screen Urine Methadone Screen Ur Barbiturates Screen Ur Phencyclidine Scrn Ur Amphetamines Screen MDMA (Ecstasy) Screen U Benzodiazepines Scrn Urine Cocaine Screen U Cannabinoids Screen Ur Drug Screen Comment 03/15/22 03/15/22 20:13 20:13 WBC RBC Hgb Hct MCV MCH MCHC RDW Std Deviation RDW Coeff of Nabil Plt Count MPV Immature Gran % (Auto) Neut % (Auto) Lymph % (Auto) [place] % (Auto) Eos % (Auto) Baso % (Auto) Absolute Neuts (auto) Absolute Lymphs (auto) Nucleated RBC % Differential Comment Platelet Estimate RBC Morphology Anisocytosis Sodium Potassium Chloride Carbon Dioxide Anion Gap BUN Creatinine Estim Creat Clear Calc Est GFR (MDRD) Af Amer Est GFR (MDRD) Non-Af BUN/Creatinine Ratio Glucose Calcium Total Bilirubin AST ALT Alkaline Phosphatase Total Protein Albumin Globulin Albumin/Globulin Ratio Serum , Qual Urine Color Yellow Urine Clarity Clear Urine pH 6.0 Ur Specific [place] 1.010 Urine Protein Negative Urine Glucose (UA) Normal Urine Ketones Negative Urine Occult Blood Negative Urine Nitrite Negative Urine Bilirubin Negative Urine Urobilinogen Normal Ur Leukocyte Esterase Negative Urine RBC 0 SEEN Urine WBC 0 SEEN Ur Squamous Epith Cells 0 SEEN Urine Bacteria 0 SEEN Urine Mucus 0 SEEN Urine Opiates Screen NEGATIVE Urine Methadone Screen NEGATIVE Ur Barbiturates Screen NEGATIVE Ur Phencyclidine Scrn NEGATIVE Ur Amphetamines Screen NEGATIVE MDMA (Ecstasy) Screen NEGATIVE U Benzodiazepines Scrn NEGATIVE Urine Cocaine Screen NEGATIVE U Cannabinoids Screen POSITIVE H Ur Drug Screen Comment Discharge Plan Triage Chief Complaint: Seizure ED Provider: Brian Winters Dx/Rx/DC Orders Instructions: ED Seizure, Recurrent (Adult) Prescriptions: New levetiracetam [Keppra] 750 mg tablet 750 mg PO DAILY Qty: 15 RF: 0 No Action pediatric multivitamin no.49 1 EACH tablet,chewable 1 tab PO BID RF: 0 ferrous sulfate 325 MG tablet 325 mg PO DAILY RF: 0 acetaminophen 500 MG tablet 1,000 mg PO Q8H PRN PRN (Reason: Pain Score 1-3) RF: 0 levothyroxine 25 MCG tablet 25 mcg PO DAILY@0600 RF: 0 ibuprofen 600 MG tablet 600 mg PO Q6H PRN PRN (Reason: Pain Score 1-3) RF: 0 Primary Care Provider: Care Physician,No Primary Referrals: Care Physician,No Primary [Primary Care Provider] - Activity Restrictions/Additional Instructions: Please follow-up with your neurologist in [place]. Disposition Disposition: Home, Self Care
[2022-03-15 19:32] LABS: Absolute Lymphocyte Count 0.19 X10^3/uL (0.83-4.51); Absolute Neutrophil Count 4.6 X10^3/uL (2.0-7.7); Basophil# 0.04 X10^3/uL; Basophil% 0.7 % (0-1); Eosinophil# 0.07 X10^3/uL; Eosinophils% 1.3 % (0-5); Hematocrit 37.7 % (37-47); Hemoglobin 12.7 g/dL (12.0-15.0); Lymphocyte # 0.19 X10^3/ul (0.83-4.51); Lymphocyte % 3.5 % (19-41); Mean Corp Hgb Conc 33.7 g/dL (32-36); Mean Corpuscular Hgb 28.3 pg (27.0-32.0); Mean Platelet Vol. 10.6 fl (6.2-12.0); Monocyte# 0.42 X10^3/uL; Monocyte% 7.8 % (0-10); NRBC Flagged by Analyzer 0 % (0-5); POSITIVE DIFFERENTIAL YES; Platelet Count 229 K/mm3 (150-450); RBC Distribution Width CV 13.6 % (11.6-14.6); Red Blood Count 4.49 M/mm3 (4.2-5.4); White Blood Count 5.4 K/mm3 (4.4-11.0)
[2022-03-15] MEDS: levETIRAcetam IV 1,000 MG/100 ML BAG 400 MG IV (19:33)
[2022-03-15] MEDS: 0.9% Normal Saline 1,000 ML 1000 ML IV (19:33)
[2022-03-15] MEDS: Ondansetron 4 MG/2 ML Vial IV (19:33)
[2022-03-15 19:36] LABS: Internal QC Validated? YES +Cl - CLEAR BKGD; Pregnancy, Serum, hCG Quali. NEGATIVE Negative
[2022-03-15 19:40] LABS: Differential Indicated SCAN CRITERIA MET
[2022-03-15 19:45] LABS: ALB/GLOB Ratio 1.2 RATIO (0.9-2.4); AST(SGOT) 20 U/L (15-37); Alanine Aminotransfer ALT/SGPT 22 U/L (13-56); Albumin, Serum 4.1 g/dL (3.2-5.0); Alkaline Phosphatase 53 U/L (45-117); Anion Gap 8 (5-15); BUN 13 mg/dL (7-18); BUN/Creat Ratio 16.5 RATIO (10-20); Calcium,Total 9.3 mg/dL (8.5-10.1); Chloride 106 mmol/L (98-107); Creatinine, Serum 0.79 mg/dL (0.55-1.02); EST Glomerular Filtration Rate 97 mL/min (>60); Est Glom Filt Rate - Afr Amer 117 mL/min (>60); Estimated Creatinine Clearance 112.68 ml/min; Globulin 3.3 g/dL (2.2-4.2); Glucose 116 mg/dL (74-106); Potassium 3.4 mmol/L (3.5-5.1); Protein, Total 7.4 g/dL (6.4-8.2); Sodium Level 137 mmol/L (136-145)
[2022-03-15 19:52] LABS: Platelet Estimate ADEQUATE (ADEQ)
[2022-03-15 19:53] LABS: Anisocytosis RARE; Red Cell Morphology NORM C+C NORMAL (NORM C&C)
[2022-03-15 20:21] LABS: Bacteria 0 SEEN /hpf (None Seen); Mucous, Urine 0 SEEN /hpf (<or=2+); Red Blood Cells-Urine 0 SEEN /hpf (0-5); Squamous Epithelial Cells - UA 0 SEEN /hpf (5-10); White Blood Cells 0 SEEN /hpf (0-5)
[2022-03-15 20:23] LABS: Color, Urine Yellow (Yellow); Glucose, Dipstick Normal (Normal); Ketone-Dipstick Negative (Negative); Leukocyte Esterase-Dipstick Negative /ul (Negative); Nitrite-Dipstick Negative (Negative); Occult Blood-Urine Negative /ul (Negative); Protein-Dipstick Negative (Negative); Urine Bilirubin Dipstick Negative (Negative); Urine Clarity Clear (Clear); Urine Urobilinogen Normal (Normal)
[2022-03-15 20:55] LABS: Amphetamine Urine VISTA NEGATIVE (<1000 ng/mL); Barbiturate Urine VISTA NEGATIVE (< 200 ng/mL); Benzodiazepine Urine VISTA NEGATIVE (< 200 ng/mL); Cocaine Urine VISTA NEGATIVE (< 300 ng/mL); Ecstacy Urine VISTA NEGATIVE (< 500 ng/mL); Methadone Urine VISTA NEGATIVE (< 300 ng/mL); PCP Urine VISTA NEGATIVE (< 25 ng/mL); THC Urine VISTA POSITIVE (< 50 ng/mL); Vista UDS pH Range 7
== END 2022-03-15 21:06 | disposition home or self-care (01) ==
PROVIDERS: Emergency Provider Student in an Organized Health Care Education/Training Program; Visit Provider Student in an Organized Health Care Education/Training Program
DX: G40.509 Epileptic seizures related to external causes, not intractable, without status epilepticus (principal); Z91.19 Patient's noncompliance with other medical treatment and regimen; Z87.891 Personal history of nicotine dependence
CPT/HCPCS: 80053; 80307; 81001; 84703; 85025; 87428; 96365; 96375; 99285; J7030; A4216; J2405

== ENCOUNTER 2022-06-19 18:22 | Emergency (ER) | payer MEDICAID, SELFPAY ==
[2022-06-19 18:22] VITALS: BP 132/99; PULSE 84; RESP 27; TEMP 36.7; O2SAT 96; BMI 18.3
--- NOTE | 2022-06-19 18:54 | EX.ED.DYSGE1 ---
HPI History of Present Illness Chief Complaint: Seizure Informant: patient and spouse/S.O. Narrative Narrative: Seizure while in the car. 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 Supposed be on Keppra 1000 mg twice daily however there is been issues and has not taken her medicines in 4 days. Prodromal symptoms of feeling of numbness left hand left feet and then blurry vision. Denies recent vomiting diarrhea. Denies cough. Denies urinary symptoms. Recently finished her menstrual period. She occasionally smokes marijuana last used 2 days ago. Rare alcohol use. None recently. Reports her prescription cannot be picked up until the from what she was told. Currently back to baseline only feeling fatigued. Prior similar symptoms: Yes [facility] Medical History Drug use affecting Marijuana use PKU (phenylketonuria) Seizure Home Medications pediatric multivitamin no.49 1 tab PO BID 08/18/20 [History Last Taken 01/31/21 09:00] ferrous sulfate 325 mg (65 mg iron) tablet 325 mg PO DAILY anemia 01/22/21 [History Last Taken 02/05/21 12:00] acetaminophen 500 mg tablet 1,000 mg PO Q8H PRN PRN Pain Score 1-3 02/08/21 [Rx Last Taken Unknown] ibuprofen 600 mg tablet 600 mg PO Q6H PRN PRN Pain Score 1-3 02/08/21 [Rx Last Taken Unknown] levothyroxine 25 mcg tablet 25 mcg PO DAILY@0600 02/08/21 [Rx Last Taken Unknown] levetiracetam 1,000 mg tablet (Keppra) 1,000 mg PO BID #30 tabs 06/19/22 [Rx Last Taken Unknown] levetiracetam 750 mg tablet (Keppra) 1,000 mg PO BID 06/19/22 [History Last Taken Unknown] Allergy/AdvReac Type Severity Reaction Status Date / Time No Known Allergies Allergy Verified 06/19/22 18:25 Social History Smoking Status: Former smoker ROS ROS ED Constitutional Constitutional ED: Denies chills, fever(s) or sweats Eyes Eyes: Denies change in vision ENT ENT ED: Denies dysphagia or sore throat Cardiovascular Cardiovascular: Denies chest pain, leg edema, palpitations or racing heartbeat Respiratory/Chest Respiratory/Chest: Denies cough, dyspnea or dyspnea on exertion Gastrointestinal Gastrointestinal: Denies abdominal pain, diarrhea, nausea or vomiting Genitourinary Genitourinary ED: Denies dysuria, hematuria or urinary frequency Musculoskeletal Musculoskeletal: Denies back pain, extremity pain or neck pain Integumentary Denies rash or wounds Neurologic Neurologic: Reports other Details: Seizure ; Denies headache(s), paresthesias or weakness EXAM Physical Exam Const Vital Signs: 06/19/22 18:22 Temperature 98.0 F Temperature Source Oral Pulse Rate 84 Respiratory Rate 27 H Blood Pressure 132/99 H Blood Pressure Mean 110 Pulse Ox 96 Oxygen Delivery Method Room Air Positive well nourished and well developed General Appearance ED: well developed and NAD HEENT Reports moist mucous membranes HEENT Narrative: No tongue abrasions. normocephalic and atraumatic Eyes PERRL, EOMs intact bilaterally and conjunctivae normal General Eye ED: Yes normal appearance of both eyes Neck no lymphadenopathy and supple General: Negative for tenderness Chest Wall Chest: Negative for tenderness Resp normal respiratory effort and normal air movement Effort and Inspection: symmetric chest movement; Negative for respiratory distress Cardio regular rate, regular rhythm and no murmurs Peripheral Pulses: pulses 2+ throughout GI normal to inspection, nondistended, normoactive bowel sounds and non-tender Palpation: Negative for guarding or rebound tenderness present Back/Spine no CVA tenderness and no thoracic nor lumbar tenderness Extremity normal to inspection General Extremety ED: Negative for edema or tenderness General Extremity: Negative for edema Neuro oriented x3, CN's II-XII intact bilaterally and no sensory deficits noted Neuro Narrative: No focal deficits. Moves all 4 extremities. Sensorium / Orientation: awake and alert Skin no rashes or lesions noted and no wounds MDM MDM MDM Narrative Medical decision making narrative: Patient no focal deficits. She has not taking medication for days likely low threshold seizures. History of cluster seizures. With multiple advances, labs were drawn stable negative. Urine noted blood however she is on her menstrual period. She was given 1 g IV Keppra. She is refilled for her Keppra for 2 weeks she states she has prescription at pharmacy however cannot fill it for 10 days. She is discharged with outpatient follow-up. Lab Data Attestation: I reviewed the patient's lab results. Labs: Laboratory Results - last 24 hr 06/19/22 06/19/22 06/19/22 19:03 19:03 19:03 WBC 6.8 RBC 4.34 Hgb 12.3 Hct 37.0 MCV 85.3 MCH 28.3 MCHC 33.2 RDW Std Deviation 42.2 RDW Coeff of Nabil 13.5 Plt Count 242 MPV 11.1 Immature Gran % (Auto) 0.300 Neut % (Auto) 67.4 Lymph % (Auto) 24.0 [place] % (Auto) 6.2 Eos % (Auto) 1.2 Baso % (Auto) 0.9 Absolute Neuts (auto) 4.6 Absolute Lymphs (auto) 1.64 Nucleated RBC % 0 Sodium 140 Potassium 3.4 L Chloride 109 H Carbon Dioxide 24.0 Anion Gap 7 BUN 13 Creatinine 0.80 Estim Creat Clear Calc 94.27 Est GFR (MDRD) Af Amer 114 Est GFR (MDRD) Non-Af 95 BUN/Creatinine Ratio 16.3 Glucose 90 Calcium 9.8 Serum , Qual NEGATIVE Urine Color Urine Clarity Urine pH Ur Specific [place] Urine Protein Urine Glucose (UA) Urine Ketones Urine Occult Blood Urine Nitrite Urine Bilirubin Urine Urobilinogen Ur Leukocyte Esterase Urine RBC Urine WBC Ur Squamous Epith Cells Urine Bacteria Urine Mucus 06/19/22 19:24 WBC RBC Hgb Hct MCV MCH MCHC RDW Std Deviation RDW Coeff of Nabil Plt Count MPV Immature Gran % (Auto) Neut % (Auto) Lymph % (Auto) [place] % (Auto) Eos % (Auto) Baso % (Auto) Absolute Neuts (auto) Absolute Lymphs (auto) Nucleated RBC % Sodium Potassium Chloride Carbon Dioxide Anion Gap BUN Creatinine Estim Creat Clear Calc Est GFR (MDRD) Af Amer Est GFR (MDRD) Non-Af BUN/Creatinine Ratio Glucose Calcium Serum , Qual Urine Color Straw Urine Clarity Clear Urine pH 7.0 Ur Specific [place] 1.005 Urine Protein Negative Urine Glucose (UA) Normal Urine Ketones Negative Urine Occult Blood 150 H Urine Nitrite Negative Urine Bilirubin Negative Urine Urobilinogen Normal Ur Leukocyte Esterase Negative Urine RBC 5-10 SEEN Urine WBC 0 SEEN Ur Squamous Epith Cells 0 SEEN Urine Bacteria RARE Urine Mucus 0 SEEN Discharge Plan Triage Chief Complaint: Seizure ED Provider: Sea Holguin Dx/Rx/DC Orders Clinical Impression: Breakthrough seizure, History of seizure Instructions: ED Seizure, Recurrent (Adult) Prescriptions: New levetiracetam [Keppra] 1,000 mg tablet 1,000 mg PO BID Qty: 30 0RF No Action pediatric multivitamin no.49 1 EACH tablet,chewable 1 tab PO BID ferrous sulfate 325 MG tablet 325 mg PO DAILY acetaminophen 500 MG tablet 1,000 mg PO Q8H PRN PRN (Reason: Pain Score 1-3) 0RF levothyroxine 25 MCG tablet 25 mcg PO DAILY@0600 0RF ibuprofen 600 MG tablet 600 mg PO Q6H PRN PRN (Reason: Pain Score 1-3) 0RF levetiracetam [Keppra] 750 mg tablet 1,000 mg PO BID Primary Care Provider: Care Physician,No Primary Referrals: Care Physician,No Primary [Primary Care Provider] - Activity Restrictions/Additional Instructions: Continue your Keppra twice a day. Follow-up with your neurologist. Disposition Disposition: Home, Self Care
[2022-06-19 19:15] LABS: Absolute Lymphocyte Count 1.64 X10^3/uL (0.83-4.51); Absolute Neutrophil Count 4.6 X10^3/uL (2.0-7.7); Basophil# 0.06 X10^3/uL; Basophil% 0.9 % (0-1); Eosinophil# 0.08 X10^3/uL; Eosinophils% 1.2 % (0-5); Hemoglobin 12.3 g/dL (12.0-15.0); Lymphocyte # 1.64 X10^3/ul (0.83-4.51); Mean Corp Hgb Conc 33.2 g/dL (32-36); Mean Corpuscular Hgb 28.3 pg (27.0-32.0); Mean Corpuscular Volume 85.3 fL (81-99); Mean Platelet Vol. 11.1 fl (6.2-12.0); Monocyte# 0.42 X10^3/uL; Monocyte% 6.2 % (0-10); NRBC Flagged by Analyzer 0 % (0-5); Neutrophil % 67.4 % (47-70); Platelet Count 242 K/mm3 (150-450); RBC Distribution Width CV 13.5 % (11.6-14.6); RBC Distribution Width SD 42.2 fl (35.1-43.9); Red Blood Count 4.34 M/mm3 (4.2-5.4); White Blood Count 6.8 K/mm3 (4.4-11.0)
[2022-06-19] MEDS: levETIRAcetam IV 100 ML 400 MG IV (19:24)
[2022-06-19 19:30] LABS: Mucous, Urine 0 SEEN /hpf (<or=2+); Squamous Epithelial Cells - UA 0 SEEN /hpf (5-10); White Blood Cells 0 SEEN /hpf (0-5)
[2022-06-19 19:33] LABS: Internal QC Validated? YES +Cl - CLEAR BKGD; Pregnancy, Serum, hCG Quali. NEGATIVE Negative
[2022-06-19 19:36] LABS: Anion Gap 7 (5-15); BUN 13 mg/dL (7-18); BUN/Creat Ratio 16.3 RATIO (10-20); Calcium,Total 9.8 mg/dL (8.5-10.1); Chloride 109 mmol/L (98-107); EST Glomerular Filtration Rate 95 mL/min (>60); Est Glom Filt Rate - Afr Amer 114 mL/min (>60); Estimated Creatinine Clearance 94.27 ml/min; Glucose 90 mg/dL (74-106); Potassium 3.4 mmol/L (3.5-5.1); Sodium Level 140 mmol/L (136-145)
[2022-06-19 19:42] LABS: Color, Urine Straw (Yellow); Glucose, Dipstick Normal (Normal); Ketone-Dipstick Negative (Negative); Leukocyte Esterase-Dipstick Negative /ul (Negative); Nitrite-Dipstick Negative (Negative); Occult Blood-Urine 150 /ul (Negative); Protein-Dipstick Negative (Negative); Specific Gravity, Urine 1.005 (1.002-1.030); Urine Bilirubin Dipstick Negative (Negative); Urine Clarity Clear (Clear); Urine Urobilinogen Normal (Normal)
[2022-06-19 19:55] LABS: Bacteria RARE /hpf (None Seen); Red Blood Cells-Urine 5-10 SEEN /hpf (0-5)
[2022-06-19 20:49] VITALS: BP 110/87; PULSE 82; RESP 15; O2SAT 99
== END 2022-06-19 20:50 | disposition home or self-care (01) ==
PROVIDERS: Emergency Provider Emergency Medicine; Visit Provider Emergency Medicine
DX: G40.909 Epilepsy, unspecified, not intractable, without status epilepticus (principal); Z87.891 Personal history of nicotine dependence; Z79.899 Other long term (current) drug therapy; F12.90 Cannabis use, unspecified, uncomplicated
CPT/HCPCS: 80048; 81001; 84703; 85025; 96365; 99284; A4216

== ENCOUNTER 2023-11-10 13:04 | Emergency (ER) | payer MEDICAID, SELFPAY ==
[2023-11-10 13:05] VITALS: BP 109/79; PULSE 68; RESP 12; TEMP 36.2; O2SAT 98; BMI 19.4
--- NOTE | 2023-11-10 14:32 | EDS_ITS ---
HPI History of Present Illness Chief Complaint: Headache Informant: patient Narrative Narrative: Patient states she has history of a seizure disorder, was on Keppra for it, but because of insurance issues, she has been unable to get into her neurologist and get or take her Keppra for the last 1.5-2 months. The first breakthrough seizure since then occurred yesterday. She was in bed when it occurred she did not fall and injure herself, her significant other witnessed it was less than 5 minutes and she was postictal afterwards and then recovered and was okay except she noticed upon waking up that she was seeing some spots in her left eye. She states when she looks straight ahead the spots are in her upper left quadrant. She does not have vision loss. She has seen no flashes. She wears glasses and her vision is normal otherwise. She has had some mild headache but that is better. She denies any focal neurologic deficits. No recent illness in the past week although a month or so ago she had influenza and COVID. She has recovered from that. The significant other witnessed this and states she did not hit her head on anything. There is no eye pain. She states the spots move when she moves her eye. [facility] Medical History Drug use affecting Marijuana use PKU (phenylketonuria) Seizure Home Medications pediatric multivitamin no.49 1 tab PO BID 08/18/20 [History Last Taken 01/31/21 09:00] ferrous sulfate 325 mg (65 mg iron) tablet 325 mg PO DAILY anemia 01/22/21 [History Last Taken 02/05/21 12:00] acetaminophen 500 mg tablet 1,000 mg (2 x 500 mg) PO Q8H PRN PRN Pain Score 1-3 02/08/21 [Rx Last Taken Unknown] ibuprofen 600 mg tablet 600 mg PO Q6H PRN PRN Pain Score 1-3 02/08/21 [Rx Last Taken Unknown] levothyroxine 25 mcg tablet 25 mcg PO DAILY@0600 02/08/21 [Rx Last Taken Unknown] levetiracetam 1,000 mg tablet (Keppra) 1,000 mg PO BID #60 tabs 11/10/23 [Rx Last Taken Unknown] Allergy/AdvReac Type Severity Reaction Status Date / Time No Known Allergies Allergy Verified 11/10/23 13:05 Social History Smoking Status: Former smoker ROS ROS ED Constitutional Constitutional ED: Denies chills or fever(s) Eyes Eyes: Reports as per HPI, change in vision and floaters; Denies blindness, blind spots or diplopia ENT ENT ED: Denies rhinorrhea or sore throat Cardiovascular Cardiovascular: Denies chest pain or palpitations Respiratory/Chest Respiratory/Chest: Denies cough or dyspnea Gastrointestinal Gastrointestinal: Denies abdominal pain, diarrhea, nausea or vomiting Genitourinary Genitourinary ED: Denies dysuria or hematuria Musculoskeletal Musculoskeletal: Denies back pain or neck pain Integumentary Denies abscess or rash Neurologic Neurologic: Reports headache(s); Denies paresthesias or weakness Psychiatric Psychiatric: Denies anxiety or suicidal thoughts EXAM Physical Exam Const Vital Signs: 11/10/23 13:05 Temperature 97.1 F L Temperature Source Temporal Pulse Rate 68 Respiratory Rate 12 Blood Pressure 109/79 Blood Pressure Mean 89 Pulse Ox 98 Oxygen Delivery Method Room Air Positive well nourished and well developed General Appearance ED: well developed and NAD HEENT Reports TM's clear and moist mucous membranes HEENT Narrative: No CSF otorhinorrhea. No hemotympanum. No Gonsales sign. No signs of facial trauma or periorbital ecchymosis. normocephalic and atraumatic Tympanic Membrane ED: Yes TM's clear Eyes PERRL and EOMs intact bilaterally Eyes Narrative: Without dilating her iris/pupil, I am able to visualize her left retina in all 4 quadrants through bedside ophthalmoscope using the patient's glasses. I do not definitively see any papilledema. She appears to have intact blood vessels in the lower nasal quadrant. When the patient closes her left eye, she has normal vision without any disturbances from the right eye. When she closes the right eye, she can see everything normally, and states there are floaters in the lateral upper quadrant that look like black spots. They float when she moves her eye [id number]. She states she has no loss of vision. Neck full ROM and supple Chest Wall inspection of chest normal and palpation of chest normal Resp normal respiratory effort and clear to auscultation bilaterally Cardio regular rate, regular rhythm and no murmurs GI non-tender and non-distended Auscultation: normoactive bowel sounds Palpation: soft Back/Spine no CVA tenderness General Back: other FROM Extremity normal to inspection General Extremety ED: Negative for edema, pulses abnormal or tenderness General Extremity: Negative for edema or pulses abnormal Neuro oriented x3, CN's II-XII intact bilaterally and no sensory deficits noted Neuro Narrative: Normal speech. Normal neurologic exam. NIHSS 0. Sensorium / Orientation: awake and alert Motor Exam: strength 5/5 throughout Psych mental status grossly normal Skin no rashes or lesions noted and no wounds MDM MDM MDM Narrative Medical decision making narrative: This does not sound like something neurologic to me, this sounds like something ophthalmologic within the left eye. She has no pain. She is not a diabetic. I suspect these are plain floaters. She does not have any evidence of retinal detachment or does she have history suspicious for that. Discussed with ophthalmology after obtaining visual acuities. He agrees patient needs follow- up with nonemergent, and will see the patient tomorrow in the office, I will have nursing call the office to help set appointment up for the patient since today are currently in the office. With regards to her breakthrough seizure, she states if given a new prescription for her levetiracetam, she will pay [id number] and fill it. Therefore I gave her a dose here, she takes 1000 mg twice daily and we will give her a new prescription. Management Discussion w/another healthcare provider: [facility] (Ophthalmology Dr. Urbina) Discharge Plan Triage Chief Complaint: Headache Other Complaint: Seizure Vision Prob ED Provider: Ian Mg Dx/Rx/DC Orders Clinical Impression: Breakthrough seizure, Vitreous floaters of left eye, Seizure disorder Instructions: Treating Flashes and Floaters, ED Seizure, Recurrent (Adult) Prescriptions: Continued pediatric multivitamin no.49 1 EACH tablet,chewable 1 tab PO BID ferrous sulfate 325 MG tablet 325 mg PO DAILY acetaminophen 500 MG tablet 1,000 mg PO Q8H PRN PRN (Reason: Pain Score 1-3) 0RF levothyroxine 25 MCG tablet 25 mcg PO DAILY@0600 0RF ibuprofen 600 MG tablet 600 mg PO Q6H PRN PRN (Reason: Pain Score 1-3) 0RF levetiracetam [Keppra] 1,000 mg tablet 1,000 mg PO BID Qty: 60 0RF Discontinued levetiracetam [Keppra] 750 mg tablet 1,000 mg PO BID Primary Care Provider: Care Physician,No Primary Referrals: Aguila Urbina MD [Med Staff - Active Staff] - 11/11/23 Care Physician,No Primary [Primary Care Provider] - Disposition Disposition: Home, Self Care
[2023-11-10] MEDS: levETIRAcetam 1,000 MG Tablet 1000 MG PO (14:55)
--- NOTE | 2023-11-10 15:56 | ED.RN ---
[facility] called and they have an open appt tomrrow with dr. vinosn at 0850. pt called and she will attend appt.
== END 2023-11-10 15:13 | disposition home or self-care (01) ==
PROVIDERS: Emergency Provider Emergency Medicine; Visit Provider Emergency Medicine
DX: G40.909 Epilepsy, unspecified, not intractable, without status epilepticus (principal); H43.392 Other vitreous opacities, left eye; Z86.16 Personal history of COVID-19; Z87.891 Personal history of nicotine dependence
CPT/HCPCS: 99284

== ENCOUNTER 2024-05-15 20:30 | Emergency (ER) | payer MEDICAID, SELFPAY ==
[2024-05-15 20:31] VITALS: BP 114/81; PULSE 65; RESP 16; TEMP 36.8; O2SAT 95; BMI 18.1
--- NOTE | 2024-05-15 20:49 | EX.ED.DYSGE1 ---
HPI <MARY Delaney - Last Filed: 05/15/24 22:03> History of Present Illness Chief Complaint: Seizure Narrative Narrative: Patient is a 24-year-old female with history of marijuana use, anxiety, depression, seizures on Keppra presenting to the emergency department with ongoing pain to her bilateral back that radiates to her abdomen. Patient states that she is also having urinary symptoms, she believes that she is having multiple kidney stones. She did try to follow-up with a doctor, they placed her on Pyridium, and have her getting an outpatient CT scan on May 23, 2024. Patient states the pain and urinary symptoms is causing her to have multiple seizures. She states that she had 5 seizures today that lasted 1 minute. She is supposed to be on Keppra 1000 mg twice a day however she does not like that dose, because the way she feels, so she takes 500 mg twice a day instead. Patient is also concerned she might be . PFS <MARY Delaney - Last Filed: 05/15/24 22:03> [facility] Medical History Drug use affecting Marijuana use PKU (phenylketonuria) Seizure Home Medications ?Medication ?Instructions ?Recorded ?Last Taken ?Type ferrous sulfate 325 mg (65 mg 325 mg PO DAILY anemia 01/22/21 02/05/21 12:00 History iron) tablet levetiracetam 1,000 mg tablet 1,000 mg PO BID 05/15/24 Unknown History (Keppra) vit no.95-ferrous 1 tab PO DAILY 05/15/24 Unknown History fumarate 28 mg-folic acid 800 mcg tablet () Allergy/AdvReac Type Severity Reaction Status Date / Time No Known Allergies Allergy Verified 05/15/24 20:31 Social History Smoking Status: Former smoker ROS <MARY Delaney - Last Filed: 05/15/24 22:03> ROS ED ROS Narrative Constitutional: Negative for fever, chills, weight loss, weakness Eyes: Negative for vision loss, vision change, double vision ENT: Negative for any sore throat, ear pain, congestion Cardiovascular: Negative for any chest pain, tightness, palpitations Respiratory: Negative for any cough, sputum production, hemoptysis, dyspnea, dyspnea on exertion, orthopnea Gastrointestinal: Negative for any diarrhea, constipation, blood in stool, blood in vomit. Positive for abdominal pain, nausea and vomiting : Negative for any urinary frequency, dysuria, retention, blood in urine Muscle skeletal: Negative for any neck pain. Positive for lower back pain Neurological: Negative for any headache, syncope, dizziness Skin: Negative for any rashes, itching, abrasions, lacerations Psychiatric: Negative for any depression, anxiety, stress, suicidal ideation, homicidal ideation Hematologic: Negative for any excessive bruising, easy bleeding EXAM <MARY Delaney - Last Filed: 05/15/24 22:03> Physical Exam Narrative Exam Narrative: Vital signs reviewed. Patient is alert and orient x 4. HEET: Head normocephalic atraumatic, TMs clear bilaterally. Posterior pharynx is clear, moist mucous membranes. Nares clear bilaterally. Neck: Supple with no lymphadenopathy or tenderness. No signs of meningismus. Cardiac: Regular rate and rhythm no murmurs gallops or rubs, equal peripheral pulses bilaterally. Respiratory: Lungs clear to auscultation bilaterally. No chest tenderness. Abdomen: Soft, nontender, nondistended. No abdominal bruit or pulsatile masses. No hepatosplenomegaly Extremities: No peripheral edema, no signs of gross trauma or deformity. Active full range of motion of all extremities. Neuro: Cranial nerves II through XII intact, no focal neurological deficits. Skin: Clean dry and intact with no rash, purpura, petechiae, vesicles or pustules. Backs/flank: Bilateral CVA tenderness no midline spinal tenderness, no deformity. Psych: Normal mood and affect. No SI, HI or acute psychosis. Const Vital Signs: 05/15/24 20:31 Temperature 98.2 F Temperature Source Temporal Pulse Rate 65 Respiratory Rate 16 Blood Pressure 114/81 H Blood Pressure Mean 92 Pulse Ox 95 Oxygen Delivery Method Room Air Positive well nourished and well developed General Appearance ED: well developed <Dr. Ian Mg MD - Last Filed: 05/15/24 22:43> Physical Exam Const Vital Signs: 05/15/24 20:31 Temperature 98.2 F Temperature Source Temporal Pulse Rate 65 Respiratory Rate 16 Blood Pressure 114/81 H Blood Pressure Mean 92 Pulse Ox 95 Oxygen Delivery Method Room Air [facility] <Leonides ArmandoMARY - Last Filed: 05/15/24 22:03> [facility] Lab Data Labs: Laboratory Results - last 24 hr 05/15/24 05/15/24 21:00 21:01 WBC 7.1 RBC 4.61 Hgb 13.5 Hct 40.8 MCV 88.5 MCH 29.3 MCHC 33.1 RDW Std Deviation 39.5 RDW Coeff of Nabil 12.2 Plt Count 235 MPV 10.9 Immature Gran % (Auto) 0.400 Neut % (Auto) 64.7 Lymph % (Auto) 26.5 [place] % (Auto) 6.5 Eos % (Auto) 0.6 Baso % (Auto) 1.3 H Absolute Neuts (auto) 4.6 Absolute Lymphs (auto) 1.88 Nucleated RBC % 0 Sodium 139 Potassium 3.7 Chloride 107 Carbon Dioxide 28.0 Anion Gap 4 L BUN 16 Creatinine 0.75 Estim Creat Clear Calc 95.25 Est GFR (MDRD) Af Amer 122 Est GFR (MDRD) Non-Af 100 BUN/Creatinine Ratio 21.4 H Glucose 91 Calcium 9.3 Total Bilirubin 0.70 AST 22 ALT 11 L Alkaline Phosphatase 61 Total Protein 7.5 Albumin 3.8 Globulin 3.7 Albumin/Globulin Ratio 1.0 Lipase 11 L Serum , Qual NEGATIVE Urine Color Yellow Urine Clarity Sl. Cloudy Urine pH 7.0 Ur Specific [place] 1.015 Urine Protein 30 H Urine Glucose (UA) Normal Urine Ketones 50 H Urine Occult Blood Negative Urine Nitrite Negative Urine Bilirubin Negative Urine Urobilinogen 1 H Ur Leukocyte Esterase 25 H Urine RBC 0 SEEN Urine WBC 0-5 SEEN Ur Squamous Epith Cells 5-10 SEEN Urine Bacteria 1+ Urine Mucus 0 SEEN Radiography Diagnostic Testing: Clinical Impression(s) from Imaging Studies Abdomen/Pelvis CT 05/15/24 20:51 IMPRESSION: Mild periportal edema, nonspecific finding. Correlate with liver function. Otherwise no acute finding in the abdomen or pelvis. Electronically Signed: Dominguez Corey MD at 22:03 EDT Reading Location ID and State: [facility] / [place] Tel , Service support , Treatment and Re-Evaluation :: Differential diagnosis includes however is not limited to: Pyelonephritis, obstructing uropathy, abdominal pain unknown etiology, cannabinoid hyperemesis, electrolyte abnormality, UTI Patient appears to be in no obvious respiratory distress, vital signs are stable, nontoxic-appearing. Presenting to the emergency department with back pain, abdominal pain, dysuria over the last 5 days. She is currently trying to handle this outpatient however states the pain is so severe. She states every time she urinates there is blood. Patient received a full abdominal workup including CBC CMP lipase, urinalysis, serum . Patient if negative for , will receive a CT scan of the abdomen pelvis IV contrast. Patient will receive IV fluids, morphine, Zofran. All radiologic examinations were read, reviewed by the emergency department attending. From these reads, a plan of care will be put in place. Patient will be reevaluated Patient had slight improvement with medications. Laboratory values showed normal CBC, patient's chemistries were unremarkable, creatinine was within normal limits, patient's serum was negative. Urinalysis showed 1+ bacteria, 5-10 squamous cells, 0-5 white cells 25 leukocytes, this to be sent for culture, do not believe the patient is currently suffered from acute UTI. CT scan of the abdomen pelvis was obtained. <Dr. Ian Mg MD - Last Filed: 05/15/24 22:43> [facility] Narrative Medical decision making narrative: I have personally performed a face to face assessment of the patient and have reviewed the YVETTE Note. I performed a substantive portion of the visit including all aspects of the following. My davis findings include: History is 5 days or so of intermittent hematuria, dysuria, urgency frequency, with suprapubic discomfort radiating into her low back nonlateralizing. She states she was having episodes of severe pain. She already saw an CONCERT MANAGER, they had to catheterize her in order to get urine out in the office, she states it did not help after that. She states she has an appointment with another CONCERT MANAGER and urology but I could not wait until then. Exam is abdomen soft nontender nondistended, well-appearing no distress. Subjective bilateral CVA tenderness equal, normal inspection. Medical Decison Making I reviewed CT images and report which I agree with, negative for any acute. No obstructive uropathy, no renal mass, her is negative, her urine shows no hematuria at this time or infection, and her renal function is normal with no leukocytosis. She is well-appearing and not in pain right now. Stable for outpatient follow-up. Other additions or changes: [None] Lab Data Labs: Laboratory Results - last 24 hr 05/15/24 05/15/24 21:00 21:01 WBC 7.1 RBC 4.61 Hgb 13.5 Hct 40.8 MCV 88.5 MCH 29.3 MCHC 33.1 RDW Std Deviation 39.5 RDW Coeff of Nabil 12.2 Plt Count 235 MPV 10.9 Immature Gran % (Auto) 0.400 Neut % (Auto) 64.7 Lymph % (Auto) 26.5 [place] % (Auto) 6.5 Eos % (Auto) 0.6 Baso % (Auto) 1.3 H Absolute Neuts (auto) 4.6 Absolute Lymphs (auto) 1.88 Nucleated RBC % 0 Sodium 139 Potassium 3.7 Chloride 107 Carbon Dioxide 28.0 Anion Gap 4 L BUN 16 Creatinine 0.75 Estim Creat Clear Calc 95.25 Est GFR (MDRD) Af Amer 122 Est GFR (MDRD) Non-Af 100 BUN/Creatinine Ratio 21.4 H Glucose 91 Calcium 9.3 Total Bilirubin 0.70 AST 22 ALT 11 L Alkaline Phosphatase 61 Total Protein 7.5 Albumin 3.8 Globulin 3.7 Albumin/Globulin Ratio 1.0 Lipase 11 L Serum , Qual NEGATIVE Urine Color Yellow Urine Clarity Sl. Cloudy Urine pH 7.0 Ur Specific [place] 1.015 Urine Protein 30 H Urine Glucose (UA) Normal Urine Ketones 50 H Urine Occult Blood Negative Urine Nitrite Negative Urine Bilirubin Negative Urine Urobilinogen 1 H Ur Leukocyte Esterase 25 H Urine RBC 0 SEEN Urine WBC 0-5 SEEN Ur Squamous Epith Cells 5-10 SEEN Urine Bacteria 1+ Urine Mucus 0 SEEN Radiography Diagnostic Testing: Clinical Impression(s) from Imaging Studies Abdomen/Pelvis CT 05/15/24 20:51 IMPRESSION: Mild periportal edema, nonspecific finding. Correlate with liver function. Otherwise no acute finding in the abdomen or pelvis. Electronically Signed: Dominguez Corey MD at 22:03 EDT , Discharge Plan Triage Chief Complaint: Seizure ED Midlevel Provider: Leonides Armando ED Provider: Ian Mg Dx/Rx/DC Orders Clinical Impression: Difficult or painful urination, Low back pain, Intermittent gross hematuria Instructions: ED Dysuria, Uncertain Cause (Adult) Prescriptions: No Action ferrous sulfate 325 MG tablet 325 mg PO DAILY PNV cmb#95-ferrous fumarate-FA [] 28 mg iron- 800 mcg tablet 1 tab PO DAILY levetiracetam [Keppra] 1,000 mg tablet 1,000 mg PO BID Rx Instructions: pt is only taking 500 mg daily Primary Care Provider: AUDREY MAYORGA Referrals: Doctor,Your [Non-Staff] - Keep Manan appointment Print Language: Swedish Disposition Disposition: Home, Self Care
--- NOTE | 2024-05-15 20:51 | CT_ITS ---
STUDY: CT ABDOMEN AND PELVIS WITH CONTRAST REASON FOR EXAM: Female, 24 years old. back pain/flank pain RADIATION DOSAGE (If Supplied By Facility): CTDIvol = ( 11.43 ) mGy, DLP = ( 342.04 ) mGycm TECHNIQUE: IV 75mL Isovue-370 was administered. Transaxial images were obtained from the dome of the diaphragm to the symphysis pubis in the portal venous phase. Multiplanar coronal and sagittal images were reformatted. Individualized Dose Optimization Techniques Were Used For This CT. COMPARISON: No relevant prior comparison study available FINDINGS: LOWER CHEST: Lung bases are clear. No cardiomegaly or pericardial effusion. LIVER: The liver is normal in size, shape, and attenuation. Mild periportal edema likely present. No focal mass. GALLBLADDER AND BILIARY TREE: The gallbladder is normally distended. No gallstones. No gallbladder wall thickening or edema. No pericholecystic fluid. No intra- or extrahepatic biliary ductal dilation. PANCREAS: No focal cystic or solid mass. SPLEEN: Normal size without focal cystic or solid mass. ADRENAL GLANDS: No nodules. KIDNEYS AND URETERS: Normal renal size and position. No hydronephrosis or nephrolithiasis. PERITONEUM: No ascites or free air. No other fluid collection. BOWEL: The stomach is unremarkable. Normal caliber small bowel. There is no obstruction. No colonic wall thickening or inflammation. No evidence of acute appendicitis. LYMPH NODES: No enlarged mesenteric or retroperitoneal lymph nodes. VESSELS: Aorta is non-dilated. URINARY BLADDER: Unremarkable. REPRODUCTIVE ORGANS: No pelvic masses. Prominent right ovarian follicles. ABDOMINAL WALL: No discrete abdominal or pelvic wall hernia. BONES: No lytic or blastic abnormality. CT/Abdomen/Pelvis W IV Cont ONLY IMPRESSION: Mild periportal edema, nonspecific finding. Correlate with liver function. Otherwise no acute finding in the abdomen or pelvis. Electronically Signed: Dominguez Corey MD at 22:03 EDT ,
[2024-05-15] MEDS: Ondansetron 4 MG/2 ML Vial IV (21:06)
[2024-05-15] MEDS: Morphine 4 MG/ML Syringe IV (21:06)
[2024-05-15] MEDS: 0.9% Normal Saline (1000mL) 1,000 ML 999 ML IV (21:06)
[2024-05-15 21:25] LABS: Mucous, Urine 0 SEEN /hpf (<or=2+); Red Blood Cells-Urine 0 SEEN /hpf (0-5)
[2024-05-15 21:28] LABS: Color, Urine Yellow (Yellow); Glucose, Dipstick Normal (Normal); Ketone-Dipstick 50 mg/dl (Negative); Leukocyte Esterase-Dipstick 25 /ul (Negative); Nitrite-Dipstick Negative (Negative); Occult Blood-Urine Negative /ul (Negative); Protein-Dipstick 30 mg/dl (Negative); Specific Gravity, Urine 1.015 (1.002-1.030); Urine Bilirubin Dipstick Negative (Negative); Urine Clarity Sl. Cloudy (Clear); Urine Urobilinogen 1 mg/dl (Normal)
[2024-05-15 21:32] LABS: Absolute Lymphocyte Count 1.88 X10^3/uL (0.83-4.51); Absolute Neutrophil Count 4.6 X10^3/uL (2.0-7.7); Basophil# 0.09 X10^3/uL; Basophil% 1.3 % (0-1); Eosinophil# 0.04 X10^3/uL; Eosinophils% 0.6 % (0-5); Hematocrit 40.8 % (37-47); Hemoglobin 13.5 g/dL (12.0-15.0); Lymphocyte # 1.88 X10^3/ul (0.83-4.51); Lymphocyte % 26.5 % (19-41); Mean Corp Hgb Conc 33.1 g/dL (32-36); Mean Corpuscular Hgb 29.3 pg (27.0-32.0); Mean Corpuscular Volume 88.5 fL (81-99); Mean Platelet Vol. 10.9 fl (6.2-12.0); Monocyte# 0.46 X10^3/uL; Monocyte% 6.5 % (0-10); NRBC Flagged by Analyzer 0 % (0-5); Neutrophil % 64.7 % (47-70); Platelet Count 235 K/mm3 (150-450); RBC Distribution Width CV 12.2 % (11.6-14.6); RBC Distribution Width SD 39.5 fl (35.1-43.9); Red Blood Count 4.61 M/mm3 (4.2-5.4); White Blood Count 7.1 K/mm3 (4.4-11.0)
[2024-05-15 21:33] LABS: Internal QC Validated? YES +Cl - CLEAR BKGD; Pregnancy, Serum, hCG Quali. NEGATIVE Negative
[2024-05-15 21:40] LABS: Bacteria 1+ /hpf (None Seen); Squamous Epithelial Cells - UA 5-10 SEEN /hpf (5-10); White Blood Cells 0-5 SEEN /hpf (0-5)
[2024-05-15 21:43] LABS: AST(SGOT) 22 U/L (15-37); Alanine Aminotransfer ALT/SGPT 11 U/L (13-56); Albumin, Serum 3.8 g/dL (3.2-5.0); Alkaline Phosphatase 61 U/L (45-117); Anion Gap 4 (5-15); BUN 16 mg/dL (7-18); BUN/Creat Ratio 21.4 RATIO (10-20); Calcium,Total 9.3 mg/dL (8.5-10.1); Chloride 107 mmol/L (98-107); Creatinine, Serum 0.75 mg/dL (0.55-1.02); EST Glomerular Filtration Rate 100 mL/min (>60); Est Glom Filt Rate - Afr Amer 122 mL/min (>60); Estimated Creatinine Clearance 95.25 ml/min; Globulin 3.7 g/dL (2.2-4.2); Glucose 91 mg/dL (74-106); Lipase 11 U/L (13-75); Potassium 3.7 mmol/L (3.5-5.1); Protein, Total 7.5 g/dL (6.4-8.2); Sodium Level 139 mmol/L (136-145)
[2024-05-15] MEDS: Ketorolac 15 MG/ML Vial IV (21:47)
[2024-05-15 22:30] VITALS: BP 98/63; PULSE 59; RESP 16; TEMP 36; O2SAT 94
== END 2024-05-15 22:49 | disposition home or self-care (01) ==
PROVIDERS: Nurse Practitioner; Emergency Provider Emergency Medicine; Visit Provider Emergency Medicine
DX: R30.9 Painful micturition, unspecified (principal); G40.909 Epilepsy, unspecified, not intractable, without status epilepticus; R31.0 Gross hematuria; R35.0 Frequency of micturition; M54.50 Low back pain, unspecified; Z79.899 Other long term (current) drug therapy; Z87.891 Personal history of nicotine dependence
CPT/HCPCS: 74177; 80053; 81001; 83690; 84703; 85025; 87086; 87088; 96361; 96374; 96375; 99283; J7030; Q9967; A4216; J2405

== ENCOUNTER 2024-09-18 12:03 | Emergency (ER) | payer MEDICAID, SELFPAY ==
[2024-09-18 12:04] VITALS: BP 107/75; PULSE 108; RESP 22; TEMP 36; O2SAT 98; BMI 18.5
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
[2024-09-18] MEDS: Ondansetron 4 MG/2 ML Vial IV (12:40)
[2024-09-18] MEDS: 0.9% Normal Saline (500mL Bag) 500 ML 1000 ML IV (12:40)
[2024-09-18 12:46] VITALS: BP 104/78; BP 105/61; BP 99/0; PULSE 63; PULSE 72; PULSE 90
[2024-09-18 12:50] LABS: Anion Gap 7 (5-15); BUN 13 mg/dL (7-18); BUN/Creat Ratio 20.8 RATIO (10-20); Calcium,Total 9.2 mg/dL (8.5-10.1); Chloride 104 mmol/L (98-107); Creatinine, Serum 0.62 mg/dL (0.55-1.02); EST Glomerular Filtration Rate 123 mL/min (>60); Est Glom Filt Rate - Afr Amer 149 mL/min (>60); Glucose 89 mg/dL (74-106); Potassium 3.6 mmol/L (3.5-5.1); Sodium Level 136 mmol/L (136-145)
[2024-09-18 12:55] LABS: Mucous, Urine 0 SEEN /hpf (<or=2+); Red Blood Cells-Urine 0 SEEN /hpf (0-5)
[2024-09-18 12:56] LABS: Color, Urine Yellow (Yellow); Glucose, Dipstick Normal (Normal); Ketone-Dipstick Negative (Negative); Leukocyte Esterase-Dipstick 25 /ul (Negative); Nitrite-Dipstick Negative (Negative); Occult Blood-Urine Negative /ul (Negative); Protein-Dipstick 30 mg/dl (Negative); Specific Gravity, Urine 1.025 (1.002-1.030); Urine Bilirubin Dipstick Negative (Negative); Urine Clarity Sl. Cloudy (Clear); Urine Urobilinogen Normal (Normal)
[2024-09-18 13:04] LABS: Bacteria 1+ /hpf (None Seen); Squamous Epithelial Cells - UA 5-10 SEEN /hpf (5-10); White Blood Cells 0-5 SEEN /hpf (0-5)
[2024-09-18 14:02] VITALS: BP 101/71; PULSE 90; RESP 18; TEMP 36.1; O2SAT 98
[2024-09-21 16:10] LABS: KEPPRA (LEVETIRACETAM) <2.0 ug/mL (10.0-40.0)
== END 2024-09-18 14:03 | disposition home or self-care (01) ==
PROVIDERS: Emergency Provider Emergency Medicine; Referring Provider Emergency Medicine; Visit Provider Emergency Medicine
DX: O21.1 Hyperemesis gravidarum with metabolic disturbance (principal); F31.9 Bipolar disorder, unspecified; O99.411 Diseases of the circulatory system complicating pregnancy, first trimester; O99.341 Other mental disorders complicating pregnancy, first trimester; I95.1 Orthostatic hypotension; Z87.891 Personal history of nicotine dependence; Z3A.01 Less than 8 weeks gestation of pregnancy
CPT/HCPCS: J7040; 80048; 80177; 81001; 96361; 96374; 99284; A4216; J2405

== ENCOUNTER 2024-11-06 09:51 | Emergency (ER) | payer MEDICAID, SELFPAY ==
[2024-11-06 09:51] VITALS: BP 133/67; PULSE 105; RESP 16; TEMP 37.2; O2SAT 100
--- NOTE | 2024-11-06 10:26 | EX.ED.DYSGE1 ---
HPI History of Present Illness Chief Complaint: Nausea/Vomiting Informant: patient and spouse/S.O. Narrative Narrative: 24-year-old female presenting to the emergency room with nausea vomiting. Patient is in her second trimester . She is G3, P2. She states that for the past 17 hours she has had persistent vomiting. She denies any diarrhea. She notes abdominal cramping. Patient states that her 2 daughters have also had recent stomach illnesses and the one is still recovering. The one that is still recovering had a fever of 101 last night. Patient does have a slight nonproductive cough. The other 2 children have also had diarrhea. She notes that some family members have had influenza since . Patient notes no significant complications of this . PFSH PFSH Medical History Seizure PKU (phenylketonuria) Drug use affecting Marijuana use Home Medications ?Medication ?Instructions ?Recorded ?Last Taken ?Type ferrous sulfate 325 mg (65 mg 325 mg PO DAILY anemia 01/22/21 02/05/21 12:00 History iron) tablet levetiracetam 1,000 mg tablet 1,000 mg PO BID 05/15/24 Unknown History ([facility]) vit no.95-ferrous 1 tab PO DAILY 05/15/24 Unknown History fumarate 28 mg-folic acid 800 mcg tablet () ondansetron 4 mg disintegrating 4 mg PO Q8H PRN PRN Nausea #10 tabs 09/18/24 Unknown Rx tablet Allergy/AdvReac Type Severity Reaction Status Date / Time No Known Allergies Allergy Verified 11/06/24 09:52 Social History Smoking Status: Former smoker ROS ROS ED Constitutional Constitutional ED: Reports chills; Denies fever(s) or weight loss Eyes Eyes: Denies change in vision or diplopia ENT ENT ED: Denies ear pain, rhinorrhea or sore throat Cardiovascular Cardiovascular: Denies chest pain, orthopnea, palpitations or racing heartbeat Respiratory/Chest Respiratory/Chest: Denies cough, dyspnea or orthopnea Gastrointestinal Gastrointestinal: Reports nausea, vomiting and other Details: Abdominal cramping ; Denies abdominal pain or diarrhea Genitourinary Genitourinary ED: Denies dysuria, hematuria or urinary frequency Musculoskeletal Musculoskeletal: Denies arthralgias or myalgias Integumentary Denies abscess or rash Neurologic Neurologic: Denies headache(s) or weakness Psychiatric Psychiatric: Denies anxiety, depression, suicidal ideation or suicidal thoughts Endocrine Endocrinology: Denies polydipsia, polyphagia or polyuria Allergic/Immunologic Allergic/Immunologic ED: Denies mouth swelling, tongue swelling or urticaria EXAM Physical Exam Const Vital Signs: 11/06/24 09:51 11/06/24 12:05 Temperature 99 F 98.6 F Temperature Source Temporal Pulse Rate 105 H 80 Respiratory Rate 16 18 Blood Pressure 133/67 H 102/56 L Blood Pressure Mean 89 71 Pulse Ox 100 99 Oxygen Delivery Method Room Air Positive well nourished and well developed General Appearance ED: well developed HEENT Reports normocephalic, head/scalp atraumatic and dry mucous membranes Mouth ED: Yes dry mucous membranes Mouth: dry mucous membranes Eyes PERRL and EOMs intact bilaterally Neck no lymphadenopathy, supple and no JVD Resp normal respiratory effort and clear to auscultation bilaterally Cardio regular rate, regular rhythm and no murmurs GI normal to inspection, nondistended, normoactive bowel sounds and non-tender Palpation: soft Back/Spine no CVA tenderness and normal ROM Extremity normal to inspection General Extremety ED: Negative for edema General Extremity: Negative for edema Neuro oriented x3 and CN's II-XII intact bilaterally Sensorium / Orientation: alert Motor Exam: strength 5/5 throughout Psych mental status grossly normal Mood & Affect: Negative for depressed or tearful Skin no rashes or lesions noted and no wounds MDM MDM MDM Narrative Medical decision making narrative: Differential diagnosis includes gastroenteritis viral syndrome dehydration electrolyte abnormalities complications anemia Patient's white count 8.3 hemoglobin 12.1 platelet count of 190. Potassium noted to be slightly low at 3.4. Glucose is 93 normal LFTs lipase 18. Patient's urinalysis shows some contamination and no overt infection. She does have 150 ketones. Patient received IV fluids as well as Zofran. She has passed p.o. challenge. heart tones are normal. At this point I suspect that the patient most likely has a viral illness. This would be in keeping with her other family members. Her COVID influenza RSV swabs were negative. The patient can be discharged home at this point. Would recommend continued oral hydration. She does have Zofran already at home. 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 Labs: Laboratory Results - last 24 hr 11/06/24 11/06/24 10:30 11:12 WBC 8.3 RBC 4.10 L Hgb 12.1 Hct 35.3 L MCV 86.1 MCH 29.5 MCHC 34.3 RDW Std Deviation 40.8 RDW Coeff of Nabil 13.1 Plt Count 190 MPV 10.4 Immature Gran % (Auto) 0.700 Neut % (Auto) 91.2 H Lymph % (Auto) 4.1 L [place] % (Auto) 3.5 Eos % (Auto) 0.1 Baso % (Auto) 0.4 Absolute Neuts (auto) 7.6 Absolute Lymphs (auto) 0.34 L Nucleated RBC % 0 Sodium 136 Potassium 3.4 L Chloride 104 Carbon Dioxide 24.0 Anion Gap 8 BUN 14 Creatinine 0.66 Estim Creat Clear Calc 114.58 Est GFR (MDRD) Af Amer 140 Est GFR (MDRD) Non-Af 116 BUN/Creatinine Ratio 21.3 H Glucose 93 Calcium 8.8 Total Bilirubin 0.80 Direct Bilirubin 0.24 AST 19 ALT 20 Alkaline Phosphatase 47 Total Protein 7.2 Albumin 3.5 Globulin 3.7 Lipase 18 Urine Color Yellow Urine Clarity Sl. Cloudy Urine pH 6.0 Ur Specific [place] 1.025 Urine Protein 30 H Urine Glucose (UA) Normal Urine Ketones 150 A* Urine Occult Blood Negative Urine Nitrite Negative Urine Bilirubin Negative Urine Urobilinogen 1 H Ur Leukocyte Esterase 25 H Urine RBC 0 SEEN Urine WBC 0 SEEN Ur Squamous Epith Cells 5-10 SEEN Urine Bacteria 1+ Urine Mucus 0 SEEN Discharge Plan Triage Chief Complaint: Nausea/Vomiting ED Provider: Amado Jackson Dx/Rx/DC Orders Clinical Impression: Vomiting, Acute dehydration, Second trimester Instructions: ED Gastroenteritis, Viral (Adult) Prescriptions: No Action ferrous sulfate 325 MG tablet 325 mg PO DAILY PNV cmb#95-ferrous fumarate-FA [] 28 mg iron- 800 mcg tablet 1 tab PO DAILY levetiracetam [Keppra] 1,000 mg tablet 1,000 mg PO BID Rx Instructions: pt is only taking 500 mg daily ondansetron 4 mg tablet,disintegrating 4 mg PO Q8H PRN PRN (Reason: Nausea) Qty: 10 0RF Primary Care Provider: Care Physician,No Primary Referrals: Care Physician,No Primary [Primary Care Provider] - Print Language: [place] Disposition Disposition: Home, Self Care
[2024-11-06] MEDS: Ondansetron 4 MG/2 ML Vial IV (10:33)
[2024-11-06] MEDS: 0.9% Normal Saline (1000mL) 1,000 ML 1000 ML IV (10:33)
[2024-11-06 10:35] VITALS: BMI 19.2
[2024-11-06 10:42] LABS: Absolute Lymphocyte Count 0.34 X10^3/uL (0.83-4.51); Absolute Neutrophil Count 7.6 X10^3/uL (2.0-7.7); Basophil# 0.03 X10^3/uL; Basophil% 0.4 % (0-1); Eosinophil# 0.01 X10^3/uL; Eosinophils% 0.1 % (0-5); Hematocrit 35.3 % (37-47); Hemoglobin 12.1 g/dL (12.0-15.0); Lymphocyte # 0.34 X10^3/ul (0.83-4.51); Lymphocyte % 4.1 % (19-41); Mean Corp Hgb Conc 34.3 g/dL (32-36); Mean Corpuscular Hgb 29.5 pg (27.0-32.0); Mean Corpuscular Volume 86.1 fL (81-99); Mean Platelet Vol. 10.4 fl (6.2-12.0); Monocyte# 0.29 X10^3/uL; Monocyte% 3.5 % (0-10); NRBC Flagged by Analyzer 0 % (0-5); Neutrophil # 7.55 X10^3/uL (2.7-7.7); Neutrophil % 91.2 % (47-70); POSITIVE DIFFERENTIAL YES; Platelet Count 190 K/mm3 (150-450); RBC Distribution Width CV 13.1 % (11.6-14.6); RBC Distribution Width SD 40.8 fl (35.1-43.9); White Blood Count 8.3 K/mm3 (4.4-11.0)
[2024-11-06 11:08] LABS: AST(SGOT) 19 U/L (15-37); Alanine Aminotransfer ALT/SGPT 20 U/L (13-56); Albumin, Serum 3.5 g/dL (3.2-5.0); Alkaline Phosphatase 47 U/L (45-117); Anion Gap 8 (5-15); BUN 14 mg/dL (7-18); BUN/Creat Ratio 21.3 RATIO (10-20); Bilirubin, Direct 0.24 mg/dL (0.00-0.30); Calcium,Total 8.8 mg/dL (8.5-10.1); Chloride 104 mmol/L (98-107); Creatinine, Serum 0.66 mg/dL (0.55-1.02); EST Glomerular Filtration Rate 116 mL/min (>60); Est Glom Filt Rate - Afr Amer 140 mL/min (>60); Estimated Creatinine Clearance 114.58 ml/min; Globulin 3.7 g/dL (2.2-4.2); Glucose 93 mg/dL (74-106); Lipase 18 U/L (13-75); Potassium 3.4 mmol/L (3.5-5.1); Protein, Total 7.2 g/dL (6.4-8.2); Sodium Level 136 mmol/L (136-145)
[2024-11-06 11:15] LABS: Mucous, Urine 0 SEEN /hpf (<or=2+); Red Blood Cells-Urine 0 SEEN /hpf (0-5); White Blood Cells 0 SEEN /hpf (0-5)
[2024-11-06 11:17] LABS: Color, Urine Yellow (Yellow); Glucose, Dipstick Normal (Normal); Leukocyte Esterase-Dipstick 25 /ul (Negative); Nitrite-Dipstick Negative (Negative); Occult Blood-Urine Negative /ul (Negative); Protein-Dipstick 30 mg/dl (Negative); Specific Gravity, Urine 1.025 (1.002-1.030); Urine Bilirubin Dipstick Negative (Negative); Urine Clarity Sl. Cloudy (Clear); Urine Urobilinogen 1 mg/dl (Normal)
[2024-11-06 11:21] LABS: Ketone-Dipstick 150 mg/dl (Negative)
[2024-11-06 11:27] LABS: Bacteria 1+ /hpf (None Seen); Squamous Epithelial Cells - UA 5-10 SEEN /hpf (5-10)
[2024-11-06 12:05] VITALS: BP 102/56; PULSE 80; RESP 18; TEMP 37; O2SAT 99
== END 2024-11-06 12:50 | disposition home or self-care (01) ==
PROVIDERS: Emergency Provider Emergency Medicine; Visit Provider Emergency Medicine
DX: O21.9 Vomiting of pregnancy, unspecified (principal); O99.282 Endocrine, nutritional and metabolic diseases complicating pregnancy, second trimester; E86.0 Dehydration; Z87.891 Personal history of nicotine dependence; Z3A.00 Weeks of gestation of pregnancy not specified
CPT/HCPCS: 80048; 80076; 81001; 83690; 85025; 87631; 96361; 96374; 96376; 99283; A4216; J2405

== ENCOUNTER 2025-04-03 12:30 | Outpatient (CLI) | payer MEDICAID, SELFPAY ==
[2025-04-03 12:45] VITALS: PULSE 85; O2SAT 97
[2025-04-03 12:47] VITALS: RESP 14; TEMP 36.6; O2SAT 99
[2025-04-03 12:48] VITALS: BP 125/86; PULSE 81
[2025-04-03 12:54] VITALS: BMI 22.1
[2025-04-03 13:12] LABS: Color, Urine Yellow (Yellow); Glucose, Dipstick Normal (Normal); Ketone-Dipstick Negative (Negative); Leukocyte Esterase-Dipstick 25 /ul (Negative); Nitrite-Dipstick Negative (Negative); Occult Blood-Urine Negative /ul (Negative); Protein-Dipstick 15 mg/dl (Negative); Specific Gravity, Urine 1.015 (1.002-1.030); Urine Bilirubin Dipstick Negative (Negative); Urine Clarity Sl. Cloudy (Clear); Urine Urobilinogen 1 mg/dl (Normal)
[2025-04-03 16:29] LABS: ROM Internal Control Test YES-OK TO RESULT pt. (Internal QC); ROM Patient Test Negative (Negative)
[2025-04-03 16:30] LABS: Record Kit Lot#, ROM+ K3358
--- NOTE | 2025-05-02 17:28 | OB.TRI.NOTE ---
HPI - General General Date of Admission: 04/03/25 Date of Service: 04/03/25 Chief Complaint: LOF HPI Narrative MIGUEL A ZHAO, is a 25 F who presents possible LOF Maternal Data Information TALAT Calculator Estimated Delivery Date Method Current WG Current Estimate 04/27/25 Manual 40w 5d PFSH PFSH Medical History IUGR (intrauterine growth restriction) History of OCD (obsessive compulsive disorder) History of bipolar disorder Tobacco use during History of drug use History of prior with IUGR Thyroid disorder depression Psychiatric disorder Seizure PKU (phenylketonuria) Drug use affecting Marijuana use Home Medications ?Medication ?Instructions ?Recorded ?Last Taken ?Type ferrous sulfate 325 mg (65 mg 325 mg PO DAILY anemia 01/22/21 04/18/25 09:00 History iron) tablet vit no.95-ferrous 1 tab PO DAILY 05/15/24 04/19/25 08:00 History fumarate 28 mg-folic acid 800 mcg tablet () vitamin E 268 mg (400 unit) capsule 268 mg PO DAILY constipation 04/03/25 04/18/25 08:00 History acetaminophen 500 mg tablet 1,000 mg (2 x 500 mg) PO Q6H PRN 04/21/25 Unknown Rx PRN Pain 1-10 Or Fever #30 tabs naproxen 500 mg tablet 500 mg PO Q8H PRN PRN Pain Score 04/21/25 Unknown Rx 1-10 #30 tabs Allergy/AdvReac Type Severity Reaction Status Date / Time No Known Allergies Allergy Verified 04/19/25 15:58 Surgical History (Updated 04/19/25 @ 15:55 by Beverly Martins) History of surgery Social History Smoking Status: Former smoker History Elective abortions Hx Para 2 Spontaneous abortions Hx # Term Pregnancies Ectopic pregnancies Hx # Pregnancies Multiple births # of living children NST FHR Rate Baby A Baseline: 130 Variability:: Moderate Accelerations:: 15 x 15 Decelerations:: None Assessment & Plan (1) 36 weeks gestation of : (2) Vaginal discharge: PLAN: ROM plus negative NST reactive
== END 2025-04-03 16:45 | disposition home or self-care (01) ==
LOC: WPOUT 12:38 → WP 12:39
PROVIDERS: Referring Provider Obstetrics & Gynecology; Visit Provider Obstetrics & Gynecology
DX: O99.891 Other specified diseases and conditions complicating pregnancy (principal); N89.8 Other specified noninflammatory disorders of vagina; Z3A.36 36 weeks gestation of pregnancy; Z87.891 Personal history of nicotine dependence
CPT/HCPCS: 59025; 59050; 81002; 84112; 87086; 87088; 99221; G0378

== ENCOUNTER 2025-04-19 13:25 | Inpatient (IN) | payer MEDICAID, SELFPAY ==
[2025-04-19] VITALS (87 sets, daily range): BP systolic 104–152; BP diastolic 53–94; PULSE 64–118; RESP 16–18; TEMP 36.3–37.1; O2SAT 96–100; BMI 22.0
[2025-04-19] MEDS: Lactated Ringers 1,000 ML 50 ML IV (14:30)
[2025-04-19 14:48] LABS: Hematocrit 30.3 % (37-47); Hemoglobin 10.6 g/dL (12.0-15.0); Immature Granulocytes Count 0.050 X10^3/uL (0.0-0.0); Mean Corp Hgb Conc 35.0 g/dL (32-36); Mean Corpuscular Volume 86.6 fL (81-99); Mean Platelet Vol. 11.3 fl (6.2-12.0); NRBC Flagged by Analyzer 0 % (0-5); Platelet Count 184 K/mm3 (150-450); RBC Distribution Width CV 12.8 % (11.6-14.6); RBC Distribution Width SD 39.8 fl (35.1-43.9); Red Blood Count 3.50 M/mm3 (4.2-5.4); White Blood Count 8.7 K/mm3 (4.4-11.0)
[2025-04-19 15:08] LABS: Barbiturate Urine NEGATIVE (< 200 ng/mL); Benzodiazepine Urine NEGATIVE (< 200 ng/mL); PCP Urine NEGATIVE (< 25 ng/mL); THC Urine PRESUMPTIVE POSITIVE (< 50 ng/mL)
[2025-04-19] MEDS: Oxytocin 15 Units/NS 250ml 15 UNITS/250 ML IV.SOLN 2 UNITS IV (15:12)
[2025-04-19 15:37] LABS: Syphilis Antibodies Nonreactive (Nonreactive)
--- NOTE | 2025-04-19 17:58 | PCM.HP.OB ---
HPI - General General Date of Admission: 04/19/25 HPI Narrative MIGUEL A ZHAO, is a 25 F at 38.6 weeks gestation who presents for scheduled induction of labor for IUGR. PFSH PFSH Medical History History of prior with IUGR Thyroid disorder depression Psychiatric disorder Seizure PKU (phenylketonuria) Drug use affecting Marijuana use Home Medications ?Medication ?Instructions ?Recorded ?Last Taken ?Type ferrous sulfate 325 mg (65 mg 325 mg PO DAILY anemia 01/22/21 04/18/25 09:00 History iron) tablet vit no.95-ferrous 1 tab PO DAILY 05/15/24 04/19/25 08:00 History fumarate 28 mg-folic acid 800 mcg tablet () ondansetron 4 mg disintegrating 4 mg PO Q8H PRN PRN Nausea #10 tabs 09/18/24 04/17/25 04:00 Rx tablet vitamin E 268 mg (400 unit) capsule 268 mg PO DAILY constipation 04/03/25 04/18/25 08:00 History aspirin 81 mg tablet,delayed 81 mg PO DAILY 04/19/25 04/18/25 08:00 History release Allergy/AdvReac Type Severity Reaction Status Date / Time No Known Allergies Allergy Verified 04/19/25 15:58 Surgical History (Updated 04/19/25 @ 15:55 by Beverly Martins) History of surgery Social History Smoking Status: Former smoker History Elective abortions Hx Para 2 Spontaneous abortions Hx # Term Pregnancies Ectopic pregnancies Hx # Pregnancies Multiple births # of living children NST FHR Rate Baby A Baseline: 140 Variability:: Moderate Accelerations:: 15 x 15 Decelerations:: None NST Reactive:: Yes FHR Category:: Category I Uterine Activity:: 1-3 minutes ROS Eyes Eyes: Denies blurry vision, change in vision or spots in vision ENT HEENT: Denies dizziness or headache(s) Cardiovascular Cardiovascular: Denies abdominal pain, chest pain or dyspnea Respiratory/Chest Respiratory/Chest: Denies cough, dyspnea, shortness of breath at rest or shortness of breath with exertion Gastrointestinal Gastrointestinal: Denies abdominal pain, diarrhea or vomiting Genitourinary Genitourinary: Denies change in urinary stream, difficulty urinating or dysuria Musculoskeletal Musculoskeletal: Reports none Integumentary Integumentary: Denies rash Neurologic Neurologic: Denies dizziness, headache(s), memory loss or weakness Psychiatric Psychiatric: Reports none Vital Signs Vital Signs Vital Signs: 04/19/25 15:00 04/19/25 15:00 04/19/25 15:00 Temperature Temperature Source Pulse Rate 74 Respiratory Rate Blood Pressure 119/84 H BP Systolic 119 BP Diastolic 84 Pulse Ox 98 04/19/25 15:01 04/19/25 15:01 04/19/25 15:01 Temperature Temperature Source Temporal Pulse Rate Respiratory Rate 16 Blood Pressure BP Systolic BP Diastolic Pulse Ox 98 04/19/25 15:01 04/19/25 16:35 04/19/25 16:35 Temperature 97.9 F Temperature Source Pulse Rate 77 Respiratory Rate Blood Pressure 128/69 H BP Systolic 128 BP Diastolic 69 Pulse Ox 04/19/25 16:35 04/19/25 16:35 04/19/25 16:35 Temperature Temperature Source Temporal Pulse Rate Respiratory Rate 16 Blood Pressure BP Systolic BP Diastolic Pulse Ox 98 04/19/25 16:35 04/19/25 17:20 Temperature 98.3 F Temperature Source Pulse Rate Respiratory Rate Blood Pressure BP Systolic BP Diastolic Pulse Ox 99 Weight Weight: 144 lb 13.499 oz Body Mass Index (BMI) 22.0 Physical Exam Const alert, oriented x3 and no apparent distress General Appearance: cooperative Orientation / Consciousness: awake Exam Limitations: no limitations HEENT normocephalic Head and Scalp: normal to inspection Eyes General Eye: normal appearance of both eyes Neck full ROM and no lymphadenopathy Lymph Lymphatic: no lymphadenopathy noted Chest inspection of chest normal Resp normal respiratory effort, normal air movement and clear to auscultation bilaterally Effort and Inspection: able to speak in complete sentences and symmetric chest movement Cardio regular rate and regular rhythm GI normal to inspection, nondistended, normoactive bowel sounds Manual OB Exam: presentation cephalic Back/Spine normal ROM Extremity full ROM and no calf tenderness Skin no rashes or lesions noted General Skin Exam: no breakdown Neuro oriented x3 and CN's II-XII intact bilaterally Psych mental status grossly normal and thought process normal Labs Labs Labs: Blood Type O POSITIVE Antibody Screen NEGATIVE Hct 30.3 % (37-47) L Hgb 10.6 g/dL (12.0-15.0) L Syphilis Total Ab Nonreactive (Nonreactive) Group B Strep DNA Negative (Negative) Rhogam given: No Miscellaneous Test Pending Assessment & Plan (1) IUGR (intrauterine growth restriction): (2) 38 weeks gestation of : (3) History of OCD (obsessive compulsive disorder): (4) History of bipolar disorder: (5) Marijuana use: (6) Drug use affecting : (7) History of drug use: (8) PKU (phenylketonuria): PLAN: Plan Admit to labor and delivery CE /-3 Routine labs Pitocin at 8 mu/min- continue to increase per orders Nitrous oxide as needed Epidural when indicated Anticipate AROM after epidural
[2025-04-19] MEDS: Lactated Ringers 1,000 ML 999 ML IV (18:45)
[2025-04-19] MEDS: fentaNYL-bupivacaine (epidural) 100 ML BAG EPIDURAL (19:33)
--- NOTE | 2025-04-19 20:47 | PN.OBGYN_ITS ---
Subjective Subjective Patient comfortable with epidural. Objective Data Objective Data Vital Signs: Vital Signs Temp Pulse Resp BP Pulse Ox 97.7 F L 79 17 111/59 L 100 04/19/25 20:36 04/19/25 20:42 04/19/25 20:00 04/19/25 20:36 04/19/25 20:42 Weight: 144 lb 13.499 oz Body Mass Index (BMI) 22.0 Intake & Output: Intake and Output for Last 24 Hours 04/17/25 04/18/25 04/19/25 23:59 23:59 23:59 Intake Total 1199.25 / 1199.25 Output Total 150 / 150 Balance 1049.25 / 1049.25 Lab / Micro Data 04/19/25 14:25 Labs: Laboratory Results - last 24 hr 04/19/25 14:25: WBC 8.7, RBC 3.50 L, Hgb 10.6 L, Hct 30.3 L, MCV 86.6, MCH 30.3, MCHC 35.0, RDW Std Deviation 39.8, RDW Coeff of Nabil 12.8, Plt Count 184, MPV 11.3, Immature Gran % (Auto) 0.600, Neut % (Auto) 77.0 H, Lymph % (Auto) 15.4 L, [place] % (Auto) 5.8, Eos % (Auto) 0.5, Baso % (Auto) 0.7, Absolute Neuts (auto) 6.7, Absolute Lymphs (auto) 1.34, Nucleated RBC % 0, Urine Opiates Screen NEGATIVE, U Buprenorphine Qual NEGATIVE, Ur Oxycodone Screen NEGATIVE, Urine Methadone Screen NEGATIVE, Urine Fentanyl Screen NEGATIVE, Ur Barbiturates Screen NEGATIVE, Ur Phencyclidine Scrn NEGATIVE, Ur Amphetamines Screen POSITIVE H, U Benzodiazepines Scrn NEGATIVE, Urine Cocaine Screen NEGATIVE, U Cannabinoids Screen PRESUMPTIVE POSITIVE, Ur Drug Screen Comment , Syphilis Total Ab Nonreactive, Blood Type O POSITIVE, Antibody Screen NEGATIVE Assessment & Plan (1) Seizure: (2) History of prior with IUGR : (3) PKU (phenylketonuria): (4) 38 weeks gestation of : (5) IUGR (intrauterine growth restriction): (6) History of bipolar disorder: (7) Tobacco use during : (8) History of drug use: (9) Drug use affecting : (10) Marijuana use: PLAN: Plan CE /-2 AROM for moderate amount of clear fluid Pitocin at 4 mu/min- increase per orders Position changes Anticipate
[2025-04-19 21:31] LABS: Barbiturate Urine NEGATIVE (< 200 ng/mL); Benzodiazepine Urine NEGATIVE (< 200 ng/mL); PCP Urine NEGATIVE (< 25 ng/mL); THC Urine PRESUMPTIVE POSITIVE (< 50 ng/mL)
[2025-04-19] MEDS: 0.9% Saline Lock 10 ML Syringe IV (22:07)
[2025-04-19] MEDS: Lactated Ringers 1,000 ML 200 ML IV (23:03)
--- NOTE | 2025-04-19 23:29 | EX.PCM.OBVAG ---
Assessment & Plan (1) Seizure: (2) PKU (phenylketonuria): (3) (spontaneous vaginal delivery): (4) IUGR (intrauterine growth restriction): (5) History of bipolar disorder: (6) History of drug use: (7) Drug use affecting : (8) Marijuana use: (9) Care and examination of lactating mother: Maternal Data Information TALAT Calculator Estimated Delivery Date Method Current WG Current Estimate 04/27/25 Manual 38w 6d Final TALAT: 04/27/25 Gestational age: 38.6 weeks Vaginal Delivery Maternal Presentation Maternal Presentation: Medically Indicated Induction Maternal Presentation: at 38.6 weeks gestation for induction of labor for IUGR. Type of Induction: Pitocin and Amniotomy Medical Reason for Induction: Other (IUGR) Vaginal Delivery Information Procedure Performed: Spontaneous Vaginal Delivery Surgeon/Practitioner: Mimi Garibay Date of Procedure: 04/19/25 Pre-Procedure Diagnosis: Term gestation, Induction of labor Post-Procedure Diagnosis: , Live male Type of anesthesia: Epidural Estimated Blood Loss: 200 Time of Delivery: 23:16 Findings Description of procedure: Patient progressed to complete dilation. With good maternal effort, head delivered followed by anterior shoulder and remainder of body without any force, delay, or traction. Vigorous male was delivered atraumatically and placed on maternal abdomen. Pitocin IV started for active management of the third stage of labor. 3 vessel cord clamped and cut after delay and placed immediately skin to skin with patient. Cord blood collected and sent. Placenta delivered spontaneously and intact. After inspection, vagina and perineum are intact. Vaginal sweep performed. Fundus is firm 2 below U and bleeding is hemostatic. Straight cathed for 100 cc clear urine. Sponge and sharps counts correct. Patient and infant bonding well at this time. Dr. Ocampo notified of delivery. Routine post orders placed. Presentation: Vertex Amniotic Membrane Rupture Type: Artificial Amniotic Fluid Description: Clear Placental Delivery Description: Spontaneous Placenta Disposition: Sent to Pathology (IUGR) Specimen collected: No Cord Vessel Description: 3 Vessels Cord Entanglement: None Nuchal Cord Compression: Without compression Infant A Gender: Male (1 minute): 8 (5 minute): 9 Delayed Cord Clamping: Yes Equipment Scheduler telegraphic service dispatcher: No Post Vaginal Deli Medications given after delivery: IV Pitocin Episiotomy Description: None Laceration: None Complication Complications: No
[2025-04-19] MEDS: Oxytocin 15 Units/NS 250ml 15 UNITS/250 ML IV.SOLN 83 UNITS IV (23:50)
[2025-04-20] VITALS (23 sets, daily range): BP systolic 100–116; BP diastolic 59–75; PULSE 63–91; RESP 16–17; TEMP 36.3–36.9; O2SAT 90–100
--- NOTE | 2025-04-20 00:49 | PLAC_PTH ---
PATIENT: MIGUEL A ZHAO LOC: WP U#:[id number] AGE/SX: 25/F ROOM: WP016 RE04/19/[address]: Mimi Garibay CNM : 2000 BED: 1 DIS: 04/21/2025 SPEC #: [id number] RECD: 04/20/25 01:36 STATUS: RADHA REJuan Miguel #: [id number] SRIRAM: 04/20/25 00:[address]: Mimi Garibay DEPT: SURGICAL PATHOLOGY RECD BY: Xavier Sheehan ENTERED: 04/20/25 09:48 SP TYPE: PLACENTA OTHR DR: Tia Primary Care Phys Tissues: A - Placenta, NOS Procedures: Surgery Specimen Level V HEADER OPERATION: Vaginal delivery PRE-OP DIAGNOSIS: IUGR TISSUE SUBMITTED: A- Placenta MICROSCOPIC DIAGNOSIS A. Placenta, gestation : 38 week / 6 days , vaginal delivery: Mature third trimester placenta (weight 434.8 grams; between 25th and 50th percentile for gestational age of 38 weeks). Negative for chorioamnionitis, funisitis or decidual vasculopathy. 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 MICROSCOPIC DESCRIPTION Slides are reviewed. GROSS DESCRIPTION A. Received in formalin labeled with the patient's name and date of is a 434.8 g, 17.5 x 15.7 x 2.0 cm ovoid placental disc. The membranes are chavez-pink translucent and somewhat edematous with loosely adherent blood clot, inserting marginally. The trivascular and hypercoiled umbilical cord measures 30.2 cm in length by 1.3 cm in diameter and inserts marginally, at the disc edge. The surface is purple-blue to rosa with focal subchorionic fibrin (<5%) and a 0.2 cm firm white nodule. The maternal surface is red-brown with a focally torn appearance and loosely adherent blood clot; when reapproximated the maternal surface appears complete. Sectioning reveals dark red spongy parenchyma with focal hemorrhage and fibrin (10%). Oracle Forms Developer sections are submitted as follows: A1: Membrane rollA2: Umbilical cordA3: Placenta with subchorionic fibrin and surface noduleA4: Placenta with fibrin SC 04/20/2025 CPT:20836
--- NOTE | 2025-04-20 00:49 | PLAC_PTH ---
PATIENT: MIGUEL A ZHAO LOC: WP U#:[id number] AGE/SX: 25/F ROOM: WP016 RE04/19/[address]: Mimi Garibay CNM : 2000 BED: 1 DIS: 04/21/2025 SPEC #: [id number] RECD: 04/20/25 01:36 STATUS: RADHA REJuan Miguel #: [id number] SRIRAM: 04/20/25 00:[address]: Mimi Garibay DEPT: SURGICAL PATHOLOGY RECD BY: Xavier Sheehan ENTERED: 04/20/25 09:48 SP TYPE: PLACENTA OTHR DR: Tia Primary Care Phys Tissues: A - Placenta, NOS Procedures: Surgery Specimen Level V HEADER OPERATION: Vaginal delivery PRE-OP DIAGNOSIS: IUGR TISSUE SUBMITTED: A- Placenta MICROSCOPIC DIAGNOSIS A. Placenta, gestation : 38 week / 6 days , vaginal delivery: Mature third trimester placenta (weight 434.8 grams; between 25th and 50th percentile for gestational age of 38 weeks). Negative for chorioamnionitis, funisitis or decidual vasculopathy. 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 MICROSCOPIC DESCRIPTION Slides are reviewed. GROSS DESCRIPTION A. Received in formalin labeled with the patient's name and date of is a 434.8 g, 17.5 x 15.7 x 2.0 cm ovoid placental disc. The membranes are chavez-pink translucent and somewhat edematous with loosely adherent blood clot, inserting marginally. The trivascular and hypercoiled umbilical cord measures 30.2 cm in length by 1.3 cm in diameter and inserts marginally, at the disc edge. The surface is purple-blue to rosa with focal subchorionic fibrin (<5%) and a 0.2 cm firm white nodule. The maternal surface is red-brown with a focally torn appearance and loosely adherent blood clot; when reapproximated the maternal surface appears complete. Sectioning reveals dark red spongy parenchyma with focal hemorrhage and fibrin (10%). Car Wiper sections are submitted as follows: A1: Membrane rollA2: Umbilical cordA3: Placenta with subchorionic fibrin and surface noduleA4: Placenta with fibrin SC 04/20/2025 CPT:62304
[2025-04-20 01:35] LABS: Pathology Specimen OB SEE PATHOLOGY REPORT
--- NOTE | 2025-04-20 08:53 | PN.OBGYN_ITS ---
Subjective Subjective Doing well. Ambulating and voiding without difficulty. Mild lochia. Breast feeding. Objective Data Objective Data Vital Signs: Vital Signs Temp Pulse Resp BP Pulse Ox O2 Del Method 97.7 F L 74 16 114/67 99 Room Air 04/20/25 08:08 04/20/25 08:08 04/20/25 08:08 04/20/25 08:08 04/20/25 08:08 04/20/25 08:08 Oxygen Delivery Method Room Air Weight: 65.7 kg Body Mass Index (BMI) 22.0 Intake & Output: Intake and Output for Last 24 Hours 04/18/25 04/19/25 04/20/25 23:59 23:59 23:59 Intake Total 2322.19 / 2322.19 250 / 250 Output Total 450 / 450 1075 / 1075 Balance 1872.19 / 1872.19 -825 / -825 Lab / Micro Data 04/19/25 14:25 Labs: Laboratory Results - last 24 hr 04/19/25 14:25: WBC 8.7, RBC 3.50 L, Hgb 10.6 L, Hct 30.3 L, MCV 86.6, MCH 30.3, MCHC 35.0, RDW Std Deviation 39.8, RDW Coeff of Nabil 12.8, Plt Count 184, MPV 11.3, Immature Gran % (Auto) 0.600, Neut % (Auto) 77.0 H, Lymph % (Auto) 15.4 L, [place] % (Auto) 5.8, Eos % (Auto) 0.5, Baso % (Auto) 0.7, Absolute Neuts (auto) 6.7, Absolute Lymphs (auto) 1.34, Nucleated RBC % 0, Urine Opiates Screen NEGATIVE, U Buprenorphine Qual NEGATIVE, Ur Oxycodone Screen NEGATIVE, Urine Methadone Screen NEGATIVE, Urine Fentanyl Screen NEGATIVE, Ur Barbiturates Screen NEGATIVE, Ur Phencyclidine Scrn NEGATIVE, Ur Amphetamines Screen POSITIVE H, U Benzodiazepines Scrn NEGATIVE, Urine Cocaine Screen NEGATIVE, U Cannabinoids Screen PRESUMPTIVE POSITIVE, Ur Drug Screen Comment , Syphilis Total Ab Nonreactive, Blood Type O POSITIVE, Antibody Screen NEGATIVE 04/19/25 19:00: Urine Opiates Screen NEGATIVE, U Buprenorphine Qual NEGATIVE, Ur Oxycodone Screen NEGATIVE, Urine Methadone Screen NEGATIVE, Urine Fentanyl Screen NEGATIVE, Ur Barbiturates Screen NEGATIVE, Ur Phencyclidine Scrn NEGATIVE, Ur Amphetamines Screen NEGATIVE, U Benzodiazepines Scrn NEGATIVE, Urine Cocaine Screen NEGATIVE, U Cannabinoids Screen PRESUMPTIVE POSITIVE ROS Constitutional Constitutional: Denies headache(s) Cardiovascular Cardiovascular: Denies chest pain or dyspnea Gastrointestinal Gastrointestinal: Denies nausea or vomiting Genitourinary Genitourinary: Denies dysuria Physical Exam Const alert, oriented x3 and no apparent distress General Appearance: cooperative and comfortable Eyes PERRL and EOMs intact bilaterally Resp normal respiratory effort GI soft to palpation and non-tender Uterus Palpation: uterus fundus firm ( below umbilicus) Extremity normal to inspection and full ROM Neuro oriented x3 and CN's II-XII intact bilaterally Psych mental status grossly normal Assessment & Plan (1) Care and examination of lactating mother: (2) (spontaneous vaginal delivery): PLAN: Plan routine care
--- NOTE | 2025-04-20 14:29 | CASEMGMT ---
Social Work Assessment Labor and Delivery Unit Patient Address: [address] [place] [address] Phone number: [phone] Date of Referral: 04/19/25 Time of Referral:? 153 Referred By: Mimi Garibay Date of Intervention: ??04/20/25 Time of Intervention:? 7131 Reason for Referral:? substance abuse Sw completed chart review and acknowledges social work consult due to maternal substance abuse. Sw presented to bedside and introduced self to mother of baby (MOB- Keeley) and father of baby (FOB- Ricki). Sw explained reason for sw involvement and completed psychosocial assessment. History obtained from: medical records, MOB and FOB Household composition: Currently residing in the home (address listed above) is MOB, FILIPPO, paternal great grandmother, MOB's two older children: Emma Huertas: 5 and Meri Huertas: 4. [place] baby to be included in residence when ready for discharge. Parents state that FILIPPO's grandma has 15 indoor/ outdoor cats that are not litter box trained and they make the house smell. They state that they are in the process of taking some of the older cats to the vet to be put down, but are worried how the grandma will respond to this. Other than this issue, they state the home is safe and secure. Patient's parent/guardian status:? ?Parents met online and have been together 2 years. This is first baby for FOPaz. Sw met with both parents together for first part of assessment and then just with MOB. KAYCEE denies any concerns of safety or domestic violence between herself and FOB. Medical History: KAYCEE is 25 year old female who is 3, para 2- now 3 following labor and delivery of . KAYCEE received routine care during with [facility]. KAYCEE presented to hospital and delivered baby via vaginal delivery on 04/19/25. Baby boy, Jimmie Oliver, was born weighing 6lb 5oz with apgars of 8 and 9 at one and five minutes of life, respectfully. MOB states that she is breast feeding and using bottles. Baby will be followed by Dr. García for pediatrics. ? Educational Status:? Both parents graduated from high school, no problems with reading, learning or comprehension. Financial Status: FILIPPO is employed in a dispensary called [employer] in [place]. 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 Supplies:?? All necessary baby supplies obtained, including: car seat, safe sleep space, clothes, diapers and wipes. Childcare/Caregiver(s):? KAYCEE will be the primary caregiver to baby along with FILIPPO. Transportation:?? FILIPPO has his drivers license and reliable means of transportation. KAYCEE has seizures and due to this medical condition has not been able to have her drivers license reinstated. Programs/Agencies Involved:???KAYCEE is connected to [employer] for: insurance, SNAP, Child support and [facility] housing voucher. She is also connected to [employer], and [place]. Children Services/Legal Issues: There was a referral made to Children Services following the delivery of her first baby 5 years ago due to maternal THC use during . KAYCEE states that a worker came to her home, ensured that she had all necessary baby items and then left, closing the case. ?? - Rima informed MOB and FOB that sw is mandated to make a referral at this time due to maternal use of THC throughout . MOB and FOB expressed understanding. - Rima called [facility] and spoke to hotline screener: [place]? Behavioral Health Issues: ??Mental Health History:?FOPaz states that he has history of anxiety but never fully diagnosed, and ADHD. FOB states that he uses THC to help him manage his mental health symptoms, along with coping skills (snow boarding, music, golfing, etc.). KAYCEE states that she has been diagnosed with: ADHD, ADD, OCD, BiPolar, and depression. KAYCEE reports that she felt good during her and did not struggle with her mental health. MOB states that since the baby has been born she has felt like herself and denies feeling down, anxious or sad. ? Substance Use History: KAYCEE reports that she used THC edibles throughout her to help with nausea and also because she stopped using her kepra which helped with her seizures. MOB states that she used daily. FOB also used daily. ?? Family History:??There is family history of substance use. ??? Drug Screens: ??Maternal drug screens were completed, KAYCEE's first urine screen was positive for amphetamine and presumptive positive for THC. KAYCEE asked for a second urine screen to be completed because she is adamant that she did not use anything other than THC. Her second urine screen was negative for amphetamine. Baby's urine was negative for all substances and the meconium is still pending. Family/Social Stressors:? KAYCEE reports that right now she is not worried or anxious about baby. She wishes that she and her family were in their own home. She is also frustrated that she does not have the say or control living in someone else's home currently. Support Systems: Parents identify both sets of family members to be supportive. Depression/Shaken Baby/Safe Sleeping:? Sw talked and educated both parents on signs and symptoms of baby blues and depression and anxiety. MOB states that she experienced symptoms in the past, however she believes they were minimal and did not last long. Sw explained that due to her mental health diagnoses and history she is at higher risk to experience mental health symptoms. MOB and FOB expressed understanding. FOB reports that he would be able to recognize if MOB were struggling. FOB states that he would also know how to help MOB. MOB reports that she is connected to mental health supports and is also open to starting medication to help her during this period. Sw educated parents on shaken baby prevention and ABCs of safe sleep. Parents express understanding. ASSESSMENT:?MOB and baby admitted following labor and delivery. MOB with mental health history and substance use during . MOB open and talkative about issues with sw. MOB states that she has engaged in treatment in the past due to meth and xanax use. MOB reports that she has been in inpatient rehab in the past, and that is why she is open about her past because she wants people to know her story. MOB states that she did not use anything other than THC. MOB reports that living with paternal great grandma is stressing her out, but she is looking forward to being able to move within the next year. MOB and FOB were both polite towards sw and engaged in conversation naturally. Parents were understanding that sw needs to make referral to Children Services due to substance use during . Parents asked appropriate questions. KAYCEE completed an [facility] and her score was an 8, which is slightly elevated and indicative of anxiety/ depression going into this period. MOB expresses some anxiety, and willingness to start medication- which her provider has been made aware of. MOB states that she feels a connection/ winkler with baby and is happy that he is here. Parents have natural supports in place and have all necessary baby supplies. Safe Plan of Care for related to substance use:? MOB states that now that baby is here she has no intention on using THC until she stops providing breast milk for baby. PLAN:? No other services requested or indicated. MOB and baby to be discharged when medically ready. Parents were provided literature regarding: signs and symptoms of baby blues and mood and anxiety disorders, [employer], shaken baby prevention, ABCs of safe sleep and a list of county resources that are available for them should any needs present themselves. Suzanne Pack, SWIMMING PROFESSOR, PRODUCTION CONSULTANT
[2025-04-21 02:35] VITALS: BP 104/60; PULSE 54; PULSE 60; O2SAT 93
[2025-04-21 02:36] VITALS: BP 104/60; PULSE 76; RESP 14; TEMP 36.4; O2SAT 100
--- NOTE | 2025-04-21 06:57 | PCM.PN.OB ---
Subjective Subjective Doing well. Ambulating and voiding without difficulty. Mild lochia. Breast feeding. Objective Data Objective Data Vital Signs: Vital Signs Temp Pulse Resp BP Pulse Ox O2 Del Method 97.5 F L 76 14 104/60 100 Room Air 04/21/25 02:36 04/21/25 02:36 04/21/25 02:36 04/21/25 02:36 04/21/25 02:36 04/21/25 02:36 Oxygen Delivery Method Room Air Weight: 65.7 kg Body Mass Index (BMI) 22.0 Intake & Output: Intake and Output for Last 24 Hours 04/19/25 04/20/25 04/21/25 23:59 23:59 23:59 Intake Total 2322.19 / 2322.19 250 / 250 Output Total 450 / 450 1075 / 1075 Balance 1872.19 / 1872.19 -825 / -825 Lab / Micro Data 04/19/25 14:25 ROS Constitutional Constitutional: Denies headache(s) Cardiovascular Cardiovascular: Denies chest pain or dyspnea Gastrointestinal Gastrointestinal: Denies nausea or vomiting Genitourinary Genitourinary: Denies dysuria Physical Exam Const alert, oriented x3 and no apparent distress General Appearance: cooperative and comfortable Eyes PERRL and EOMs intact bilaterally Resp normal respiratory effort GI soft to palpation and non-tender Uterus Palpation: uterus fundus firm ( below umbilicus) Extremity normal to inspection and full ROM Neuro oriented x3 and CN's II-XII intact bilaterally Psych mental status grossly normal Assessment & Plan (1) Care and examination of lactating mother: (2) (spontaneous vaginal delivery): (3) History of bipolar disorder: PLAN: Plan to follow up with [facility] counseling. PLAN: Plan Discharge home
--- NOTE | 2025-04-21 06:58 | DS.PCM_ITS ---
Providers Date of Admission: 04/19/25 Date of Discharge: 04/21/25 Primary Care Physician: No Primary Care Phys Reason For Visit: INDUCTION Diagnosis Discharge Diagnosis (1) Care and examination of lactating mother: Status: Acute Code(s): Z39.1 - Encounter for care and examination of lactating mother (2) (spontaneous vaginal delivery): Status: Acute Code(s): O80 - Encounter for full-term uncomplicated delivery (3) History of bipolar disorder: Status: Acute Code(s): Z86.59 - Personal history of other mental and behavioral disorders Plan: Plan to follow up with [facility]. Plan Discharge home Medications at Discharge Home Medications ferrous sulfate 325 mg (65 mg iron) tablet 325 mg PO DAILY anemia 01/22/21 vit no.95-ferrous fumarate 28 mg-folic acid 800 mcg tablet () 1 tab PO DAILY 05/15/24 vitamin E 268 mg (400 unit) capsule 268 mg PO DAILY constipation 04/03/25 acetaminophen 500 mg tablet 1,000 mg (2 x 500 mg) PO Q6H PRN PRN Pain 1-10 Or Fever #30 tabs 04/21/25 naproxen 500 mg tablet 500 mg PO Q8H PRN PRN Pain Score 1-10 #30 tabs 04/21/25 Hospital Course Operations None Procedures None Weight / BMI Weight Weight: 65.7 kg Body Mass Index (BMI) 22.0 ABG / Lab / Microbiology Data 04/19/25 14:25 D/C Instructions May resume sexual activity in: 6 weeks DC O2, CPAP, BIPAP Needs Home O2 Discharge instructions: No Please Follow Up With: Shonda Ocampo MD When: Follow up with our office in 1-2 and 6 weeks or as needed. [phone] Meaningful Use Info Meaningful Use Meaningful Use Diagnoses (Choose all that apply): None applicable Ischemic Stroke Statin Dosing Therapy Reference: STATIN DOSE THERAPY REFERENCE: * Patients > 75 years receive moderate or high dose statin therapy. * Patients 75 years or YOUNGER should receive HIGH intensity statin dose unless contraindicated. You will be required to document reason for non-treatment if statin daily dose does not meet guidelines. HIGH DOSE STATIN THERAPY DAILY Atorvastatin > than or = to 40 mg Rosuvastatin > than or = to 20 mg Amlodipine + Atorvastatin > than or = to 2.5/40 mg Ezetimibe + Simvastatin 10/80 mg Simvastatin 80mg Discharge Plan Admission Admit Date/Time: 04/19/25 13:25 Primary Reason for Your Visit: labor Attending Provider: Mimi Garibay Primary Care Provider: Care Physician,No Primary Discharge Orders/Prescriptions Prescriptions: New acetaminophen 500 mg Tablet 1,000 mg PO Q6H PRN PRN (Reason: Pain 1-10 Or Fever) Qty: 30 0RF naproxen 500 mg Tablet 500 mg PO Q8H PRN PRN (Reason: Pain Score 1-10) Qty: 30 0RF Continued ferrous sulfate 325 MG tablet 325 mg PO DAILY PNV cmb#95-ferrous fumarate-FA [] 28 mg iron- 800 mcg tablet 1 tab PO DAILY vitamin E 268 mg (400 unit) capsule 268 mg PO DAILY Discontinued ondansetron 4 mg tablet,disintegrating 4 mg PO Q8H PRN PRN (Reason: Nausea) Qty: 10 0RF aspirin 81 mg tablet,delayed release (DR/EC) 81 mg PO DAILY Referrals / Follow Up: Care Physician,No Primary [Primary Care Provider] - Disposition Disposition (needs filled in before D/C Order can be placed): Home, Self Care
[2025-04-21 09:00] VITALS: BP 113/70; PULSE 70; RESP 16; TEMP 36.6
[2025-04-21 09:06] VITALS: BP 113/70; PULSE 70
[2025-04-21] MEDS: Senna/Docusate Sodium 1 Tablet PO (10:52)
[2025-04-24 16:08] LABS: Amphetamine Ur Confirm Negative (Cutoff=500)
--- NOTE | 2025-04-27 16:29 | NURSING ---
Follow up phone call made, doing well, not having any pain. Milk is in and pumping is going really well. Weight check, is gaining weight. Bleeding is getting better. Denies any questions or concerns.
== END 2025-04-21 11:00 | disposition home or self-care (01) | DRG 560 ==
PROVIDERS: Obstetrics & Gynecology; Admitting Provider Advanced Practice Midwife; Referring Provider Advanced Practice Midwife; Visit Provider Advanced Practice Midwife
DX: O36.5930 Maternal care for other known or suspected poor fetal growth, third trimester, not applicable or unspecified (principal); Z37.0 Single live birth; E70.1 Other hyperphenylalaninemias; O99.324 Drug use complicating childbirth; F12.90 Cannabis use, unspecified, uncomplicated; O99.284 Endocrine, nutritional and metabolic diseases complicating childbirth; Z3A.38 38 weeks gestation of pregnancy; Z87.891 Personal history of nicotine dependence; Z86.59 Personal history of other mental and behavioral disorders
CPT/HCPCS: 59025; 59050; 80307; 85025; 86780; 86850; 86900; 86901; 88307; 99221; A4216; G0378; J2405